=== PATIENT | female | born 1945 | race Caucasian/White ===

== ENCOUNTER → 2016-05-02 | Outpatient (CLI) | payer OTHER, MEDICARE ==
[~2016-05-02] MED LIST: ASPEC81 PO; ATOR-24 PO; FURO80TA63 PO; POTA8CAP6 PO
[2016-05-02 15:19] LABS: ESTIMATED AVERAGE GLUCOSE 126 mg/dl; HA1C FLAG Normal (Normal)
[2016-05-02 15:21] LABS: BLOOD UREA NITROGEN 16 mg/dl (7-18); BUN/CREATININE RATIO 20.3 (10-20); CALCIUM 9.3 mg/dl (8.5-10.1); CARBON DIOXIDE 24 mmol/L (21-32); CHLORIDE 105 mmol/L (98-107); CHOLESTEROL 169 mg/dl (0-200); CHOLESTEROL/HDL RATIO 2.3; CREATININE 0.79 mg/dl (0.60-1.20); GLUCOSE 105 mg/dl (70-99); HDL CHOLESTEROL 74 mg/dl; SODIUM 141 mmol/L (136-145)
[2016-05-02 15:22] LABS: TRIGLYCERIDES 110 mg/dl (0-150); VERY LOW DENSITY LIPOPROT CALC 22 mg/dl
== END | disposition home or self-care (01) ==
LOC: C.LABSPEC 12:13
PROVIDERS: ATTEND Internal Medicine
DX: E78.5 Hyperlipidemia, unspecified (principal); R73.9 Hyperglycemia, unspecified; Z00.00 Encounter for general adult medical examination without abnormal findings; E66.01 Morbid (severe) obesity due to excess calories

== ENCOUNTER → 2016-10-24 | Outpatient (CLI) | payer OTHER, MEDICARE ==
--- NOTE | 2016-10-24 14:32 | MAMMOGRAPHY REPORT ---
BILATERAL DIGITAL SCREENING MAMMOGRAM WITH CAD: 10/24/2016 CLINICAL HISTORY: Routine screening. TECHNIQUE: Current study was also evaluated with a Computer Aided Detection (CAD) system. Bilateral CC and MLO views were obtained. COMPARISON: Comparison is made to exams dated: 10/16/2015 mammogram, 10/09/2014 mammogram, 10/03/2013 brendan mogram, 10/01/2012 mammogram, 09/29/2011 mammogram, and 09/13/2010 mammogram - [facility] er. BREAST COMPOSITION: There are scattered areas of fibroglandular density in both breasts. FINDINGS: No suspicious masses, calcifications, or areas of architectural distortion are noted in ei ther breast. There has been no significant interval change compared to prior exams. A biopsy marker clip is again noted in the left breast. IMPRESSION: ACR BI-RADS CATEGORY 2: BENIGN There is no mammographic evidence of malignancy. A 1 year screening mammogram is recommended. The pa tient will receive written notification of the results. Approximately 10% of breast cancers are not detected with mammography. A negative mammographic report should not delay biopsy if a clinically suggestive mass is present. Linda Noble M.D. /:10/24/2016 12:34:05 Glass Blowing Lathe Operator: Austin COOPER(Marychuy)(Rad), [facility] letter sent: Normal 1/2 BI-RADS Code: ACR BI-RADS Category 2: Benign
== END | disposition home or self-care (01) ==
LOC: C.MAMM 10:06
PROVIDERS: ATTEND Internal Medicine
DX: Z12.31 Encounter for screening mammogram for malignant neoplasm of breast (principal)

== ENCOUNTER → 2016-11-17 | Outpatient (CLI) | payer OTHER, MEDICARE ==
[2016-11-17 13:10] LABS: BLOOD UREA NITROGEN 15 mg/dl (7-18); BUN/CREATININE RATIO 20.1 (10-20); CARBON DIOXIDE 29 mmol/L (21-32); CHLORIDE 108 mmol/L (98-107); CHOLESTEROL 148 mg/dl (0-200); CREATININE 0.74 mg/dl (0.60-1.20); GLUCOSE 106 mg/dl (70-99); POTASSIUM 3.6 mmol/L (3.5-5.1); SODIUM 142 mmol/L (136-145)
[2016-11-17 13:14] LABS: CHOLESTEROL/HDL RATIO 2.2; HDL CHOLESTEROL 66 mg/dl; TRIGLYCERIDES 90 mg/dl (0-150); VERY LOW DENSITY LIPOPROT CALC 18 mg/dl
[2016-11-17 13:25] LABS: ESTIMATED AVERAGE GLUCOSE 120 mg/dl; HA1C FLAG Normal (Normal)
== END | disposition home or self-care (01) ==
LOC: C.LABSPEC 12:19
PROVIDERS: ATTEND Internal Medicine
DX: E78.5 Hyperlipidemia, unspecified (principal); R73.9 Hyperglycemia, unspecified

== ENCOUNTER → 2017-05-18 | Outpatient (CLI) | payer OTHER, MEDICARE ==
[2017-05-18 13:43] LABS: BLOOD UREA NITROGEN 15 mg/dl (7-18); CARBON DIOXIDE 28 mmol/L (21-32); GLUCOSE 109 mg/dl (70-99); POTASSIUM 4.1 mmol/L (3.5-5.1); SODIUM 137 mmol/L (136-145)
[2017-05-18 13:46] LABS: CHOLESTEROL 159 mg/dl (0-200); HEMOGLOBIN A1C 5.8 % (4.5-5.6); LDL CHOLESTEROL (DIRECT) 79 mg/dl
== END | disposition home or self-care (01) ==
LOC: C.LABSPEC 12:23
PROVIDERS: ATTEND Internal Medicine
DX: R73.9 Hyperglycemia, unspecified (principal); Z00.00 Encounter for general adult medical examination without abnormal findings; E78.5 Hyperlipidemia, unspecified

== ENCOUNTER → 2017-06-02 | Outpatient (CLI) | payer OTHER, MEDICARE ==
--- NOTE | 2017-06-02 09:10 | DIAGNOSTIC IMAGING REPORT ---
AORTIC ANEURYSM RETROPERI CLINICAL HISTORY: FAM HX ANEURYSM, AB BRUIT aneurysm TECHNIQUE: Ultrasound COMPARISON STUDY: None FINDINGS: Normal caliber abdominal aorta. No evidence for aneurysm or abnormal periaortic fluid pockets. Maximum dimension proximally is 2.6 cm. Mid abdominal aorta measures 2.0 cm with a distal measuring 1.8 cm. IMPRESSION: Normal study. No evidence for aneurysm. The above report was generated using voice recognition software. It may contain grammatical, syntax or spelling errors. Electronically signed by: Laurent Anaya M.D. 06/02/2017 9:08 AM Dictated Date/Time: 06/02/2017 9:07 AM
== END | disposition home or self-care (01) ==
LOC: C.ULTR 08:25
PROVIDERS: ATTEND Internal Medicine
DX: Z82.49 Family history of ischemic heart disease and other diseases of the circulatory system (principal); R09.89 Other specified symptoms and signs involving the circulatory and respiratory systems

== ENCOUNTER → 2017-10-30 | Outpatient (CLI) | payer OTHER, MEDICARE ==
--- NOTE | 2017-10-31 15:23 | MAMMOGRAPHY REPORT ---
BILATERAL DIGITAL SCREENING MAMMOGRAM TOMOSYNTHESIS WITH CAD: 10/30/2017 CLINICAL HISTORY: Routine screening. TECHNIQUE: The study was acquired using full field digital technology and interpreted from soft copy. Breast tomosynthesis in addition to standard 2D mammography was performed. Current study was also ev aluated with a Computer Aided Detection (CAD) system. COMPARISON: Comparison is made to exams dated: 10/24/2016 mammogram, 10/16/2015 mammogram, 10/09/2014 ma mmogram, 10/03/2013 mammogram, 10/01/2012 mammogram, and 09/29/2011 mammogram - [facility] er. BREAST COMPOSITION: There are scattered areas of fibroglandular density in both breasts. FINDINGS: There is stable nodularity in the breasts. A stable ribbon-shaped biopsy marker clip in th e anterior left breast. No suspicious mass, architectural distortion or cluster of microcalcification s is seen. IMPRESSION: ACR BI-RADS CATEGORY 1: NEGATIVE There is no mammographic evidence of malignancy. A 1 year screening mammogram is recommended.( [id number]) The patient will receive written notification of the results. Some breast cancers are not detected with mammography. A negative mammographic report should not av y biopsy if a clinically suggestive mass is present. Mary Costa M.D. ay/:10/30/2017 20:33:29 Chimney Repairer: RT Juanito(Marychuy)(M), [facility] letter sent: Normal 1/2 BI-RADS Code: ACR BI-RADS Category 1: Negative
== END | disposition home or self-care (01) ==
LOC: C.MAMM 09:53
PROVIDERS: ATTEND Internal Medicine
DX: Z12.31 Encounter for screening mammogram for malignant neoplasm of breast (principal)

== ENCOUNTER → 2017-11-24 | Outpatient (CLI) | payer OTHER, MEDICARE ==
[2017-11-24 14:25] LABS: ALBUMIN 3.6 gm/dl (3.4-5.0); ALKALINE PHOSPHATASE 114 U/L (45-117); ALT/SGPT 22 U/L (12-78); AST/SGOT 26 U/L (15-37); BLOOD UREA NITROGEN 14 mg/dl (7-18); CALCIUM 9.1 mg/dl (8.5-10.1); CARBON DIOXIDE 28 mmol/L (21-32); CHOLESTEROL 150 mg/dl (0-200); CREATININE 0.83 mg/dl (0.60-1.20); GLUCOSE 104 mg/dl (70-99); LDL CHOLESTEROL (DIRECT) 77 mg/dl; POTASSIUM 4.3 mmol/L (3.5-5.1); SODIUM 143 mmol/L (136-145); TOTAL PROTEIN 7.2 gm/dl (6.4-8.2)
[2017-11-24 14:27] LABS: HEMOGLOBIN A1C 5.9 % (4.5-5.6)
== END | disposition home or self-care (01) ==
LOC: C.LABSPEC 13:13
PROVIDERS: ATTEND Internal Medicine
DX: R73.9 Hyperglycemia, unspecified (principal); E78.5 Hyperlipidemia, unspecified

== ENCOUNTER 2022-06-29 16:48 | Observation (INO) ==
--- NOTE | 2022-06-29 17:01 | Emergency Department Note ---
Impression & Plan Choledocholithiasis, Cholelithiases, Femoral hernia of left side, Abdominal pain, Dilated cbd, acquired ED Provider Note NAME: BETSY BAKER AGE: 77 SEX: F : 1945 ARRIVES VIA: Walk-In INFORMANT: Patient, ED PROVIDER(S): Marco A Rothman MD CHIEF COMPLAINT: Abdominal pain MEDICAL DECISION MAKING: Patient presents due to concern for abdominal pain. Patient does have an IV established blood work was obtained a CT abdomen pelvis was ordered. The patient did request pain medication. The patient did receive IV morphine. The patient is a normal white count H&H and platelet count kidney function is unremarkable with relatively normal electrolytes. Urinalysis does show the possibility infection was ordered Rocephin. Patient's CT does show scattered small bowel air-fluid levels suggestive of possible enteritis. Small bowel containing left femoral hernia the patient does have cholelithiasis that CT evidence of acute cholecystitis. Mild dilatation of CBD with equivocal choledocholithiasis and possible pancreatitis. Patient's LFTs and lipase are normal. The patient does have some pain in the left abdomen that is close to where the left femoral hernia would be based on imaging. I did speak with general surgery Colton Aguilera PA-C. Unsure as to whether or not this is a reducible hernia. I did speak with Dr. Castellon with GI and explained the patient does have CBD dilatation with equivocal choledocholithiasis. She recommended ERCP in the morning. I did speak the on-call hospitalist service and the patient was admitted by Dr. Cradozo. I did inform the patient of the recommendations and she is comfortable with the plan of care. Prior /Outside records reviewed: none Differential diagnosis: Appendicitis, ovarian cyst, ovarian torsion, ectopic , TOA, PID, infections, diverticulitis, UTI, obstruction, mesenteric ischemia, aortic pathology, inflammatory bowel disease, renal colic, PUD, pancreatitis, biliary pathology, hernia, volvulus, constipation, as well as other pathologies. Diagnostics, as interpreted by me: ECG: None Cardiac monitoring: An order was placed for continuous cardiac monitoring. The monitor shows a rate of 77 with sinus rhythm. Patient was placed on pulse oximetry Medical decision rules: None Imaging studies: See below HPI: Patient presents due to concern for abdominal pain. The patient states that she initially noticed it yesterday but today has been more persistent describes it as bandlike over the mid abdomen as well as in the lower abdomen. Patient denies any falls or trauma. The patient does have a prior history of a hysterectomy and an umbilical hernia repair. No other surgeries on her abdomen. Patient has had a nausea vomiting or diarrhea. No known sick contacts or recent travel. The patient states that she has had a recent bowel movement last 24 hours denies any blood in urine or stool. No history of kidney stones. Patient did trial some Pepto-Bismol but this did not improve her symptoms. PAST MEDICAL HISTORY: See Below PAST SURGICAL HISTORY: See Below SOCIAL HISTORY: See Below HOME MEDICATIONS: See Below ALLERGIES: See Below VITALS: See Below PHYSICAL EXAMINATION: GENERAL: NAD, wearing a mask, non-toxic. EYE EXAM: Normal conjunctiva. PERRL, no anisocoria and EOM's grossly intact w/o pain. NECK: Supple, no nuchal rigidity, no adenopathy, non-tender. No signs of meningismus. FROM of the neck with good chin to chest and neck extension. No stridor. LUNGS: Clear to auscultation. Normal chest wall mechanics. HEART: NSR, no MRG. ABDOMEN: Abdomen soft, mid abdominal discomfort, not peritonitic, no masses, no rebound or guarding. BACK: No CVA TTP. SKIN: No rashes and no bruising. UPPER EXTREMITIES: Upper extremities are grossly normal. LOWER EXTREMITIES: Grossly normal, no edema. NEURO EXAM: A&O x3, cranial nerves II-XII grossly intact, normal speech, moves all 4 extremities. Past Med/Surg History Medical History Arthritis History of skin cancer Hypertension Lymphedema REASON FOR LASIX DAILY Surgical History H/O total hysterectomy History of cataract surgery LEFT History of colonoscopy History of esophagogastroduodenoscopy (EGD) History of eyelid surgery LEFT EYE SKIN REMOVED History of herniorrhaphy History of tonsillectomy and adenoidectomy History of tooth extraction Family History Daughter Family history of diabetes mellitus Social History Smoking Status: Never smoker Second Hand Exposure: No; Hx Alcohol Use: Yes Alcohol type: wine Preferred Language: Kazakh Licensed Staff Mft Required: No Beliefs That Will Affect Care: None Current Living Situation: Spouse Feels Safe at Home: Yes Assistive Devices: Denture - Upper and Glasses Allergies Allergies Allergy/AdvReac Type Severity Reaction Status Date / Time No Known Allergies Allergy Verified 06/29/22 17:43 Home Meds Home Medications Medication Instructions Recorded Confirmed atorvastatin 40 mg tablet 40 mg PO HS 01/15/20 06/29/22 furosemide 40 mg tablet 40 mg PO BID 01/15/20 06/29/22 multivitamin 1 tab PO HS 01/15/20 06/29/22 potassium chloride 10 mEq 30 meq PO BID 01/15/20 06/29/22 tablet,extended release aspirin 81 mg tablet,delayed 81 mg PO HS 06/29/22 06/29/22 release Results & Data (ED) Vital Signs Vital Signs - 24 hr 06/29/22 16:53 06/29/22 17:24 06/29/22 17:26 Temperature 36.9 C Temperature Source Skin Pulse Rate 57 L 58 L Pulse Rate [Left Apical] 60 Pulse Rhythm Regular Pulse Strength Normal Respiratory Rate 20 18 Respiratory Effort / Characteristics Non-Labored Spontaneous Respiratory Depth Normal Respiratory Pattern Regular Blood Pressure 186/74 H Blood Pressure [Right Arm] 168/70 H Blood Pressure Mean 111 Blood Pressure Mean [Right Arm] 102 Pulse Oximetry 99 98 Oxygen Delivery Method Room Air Room Air Sepsis Recent Fever Within 48 Hours No Sepsis New/Unexplained Change in Mental Status N/A Sepsis Action Taken by Nursing No Action Required 06/29/22 21:29 Temperature Temperature Source Pulse Rate 70 Pulse Rate [Left Apical] Pulse Rhythm Pulse Strength Respiratory Rate Respiratory Effort / Characteristics Respiratory Depth Respiratory Pattern Blood Pressure Blood Pressure [Right Arm] Blood Pressure Mean Blood Pressure Mean [Right Arm] Pulse Oximetry Oxygen Delivery Method Sepsis Recent Fever Within 48 Hours Sepsis New/Unexplained Change in Mental Status Sepsis Action Taken by Fdc Medications Current Medication List: was personally reviewed by me Laboratory Data Attestation: I reviewed the patient's lab results. 06/29/22 17:10 06/29/22 17:10 Lab Results 06/29/22 06/29/22 06/29/22 Range/Units 17:10 17:10 17:14 WBC 9.05 (4.8-10.8) K/ul RBC 4.92 (4.20-5.40) M/uL Hgb 14.4 (12.0-16.0) g/dl Hct 43.4 (37.0-47.0) % MCV 88.2 (80.0-100.0) fL MCH 29.3 (25.0-34.0) pg MCHC 33.2 (32.0-36.0) g/dL RDW Std Deviation 41.3 (36.4-46.3) fL RDW Coeff of Olena 12.8 (11.5-14.5) % Plt Count 254 (130-400) K/uL MPV 11.1 (9.4-12.4) fL Immature Gran % (Auto) 0.1 % Neut % (Auto) 65.4 % Lymph % (Auto) 25.9 % [place] % (Auto) 7.7 % Eos % (Auto) 0.6 % Baso % (Auto) 0.3 % Neut # (Auto) 5.92 (1.40-6.50) K/uL Lymph # (Auto) 2.34 (1.2-3.4) K/uL [place] # (Auto) 0.70 H (0.11-0.59) K/uL Eos # (Auto) 0.05 (0-0.50) K/uL Baso # (Auto) 0.03 (0-0.2) K/uL Immature Gran # (Auto) 0.01 (0.01-0.20) K/uL Sodium 143 (136-145) mmol/L Potassium 3.7 (3.5-5.1) mmol/L Chloride 104 (98-107) mmol/L Carbon Dioxide 28 (21-32) mmol/L Anion Gap 11 (3-11) BUN 19 (6-23) mg/dl Creatinine 1.09 (0.6-1.2) mg/dl Est Cr Clr Drug Dosing 52.4 ml/min Est GFR ( Amer) 55.9 ml/min Est GFR (Non-Af Amer) 48.2 ml/min BUN/Creatinine Ratio 17.4 (10-20) Glucose 114 H (70-99(Fasting)) mg/dl Calcium 9.8 (8.6-10.3) mg/dl Total Bilirubin 0.7 (0.2-1.0) mg/dl AST 20 (13-39) U/L ALT 11 (7-52) U/L Alkaline Phosphatase 93 (34-104) U/L Total Protein 7.4 (6.0-8.3) gm/dl Albumin 4.3 (3.4-5.0) gm/dl Globulin 3.1 (2.5-4.0) gm/dl Albumin/Globulin Ratio 1.4 (0.9-2) Lipase 30 (11-82) U/L Urine Color Yellow Urine Appearance Cloudy A (Clear) Urine pH 6.5 (4.5-7.5) Ur Specific [place] 1.033 H (1.000-1.030) Urine Protein Trace H (Negative) Urine Glucose (UA) Negative (Negative) Urine Ketones Trace H (Negative) Urine Blood Negative (Negative) Urine Nitrite Negative (Negative) Urine Bilirubin Negative (Negative) Urine Urobilinogen Negative (Negative) Ur Leukocyte Esterase Negative (Negative) Urine WBC (Auto) 5-10 H (0-5) /hpf Urine RBC (Auto) 0-4 (0-4) /hpf U Hyaline Cast (Auto) 0 (0-5) /lpf U Epithel Cells (Auto) 5-10 H (0-5) /lpf Urine Bacteria (Auto) 2+ H (Negative) Administered Medications Discontinued Medications Ceftriaxone Sodium (Rocephin) 2,000 mg in 70 mls @ 140 mls/hr IV NOW STA Stop: 06/29/22 20:14 Last Admin: 06/29/22 20:22 Dose: 140 mls/hr Documented By: DIPESH Ioversol (Optiray 350 100ml) 94 ml IV ONCE ONE Stop: 06/29/22 19:04 Last Admin: 06/29/22 19:03 Dose: 94 ml Documented By: ELZBIETA Morphine Sulfate (Morphine Sulfate 4 Mg/Ml 1 Ml Carp\Vial) 4 mg IV NOW STA Stop: 06/29/22 17:45 Last Admin: 06/29/22 17:48 Dose: 4 mg Documented By: [facility] Imaging Data Radiologist's Impression: Abdomen/Pelvis CT 06/29/22 17:[address] WITH IV CONTRAST CT DOSE: 1098.16 mGy.cm HISTORY: Acute severe generalized abdominal pain lower ab pain; h/o hysterec umb hernia repair TECHNIQUE: Multiaxial CT images of the abdomen and pelvis were performed following the IV administration of 94 cc of Optiray, A dose lowering technique was utilized adhering to the principles of ALARA. COMPARISON STUDY: None. FINDINGS: Moderate cardiomegaly with coronary artery calcifications. Clear lung bases. No pneumatosis or pneumoperitoneum. Unremarkable spleen, and adrenal glands. Cholelithiasis without CT evidence of acute cholecystitis. There is a 2 mm radiodense focus noted in the roxana hepatis on image 122. The common bile duct is mildly dilated measuring up to 9 mm extending to the level of the duodenal ampulla. Questioned interstitial and peripancreatic edema. Unremarkable liver. Patency of the hepatic and portal veins. Exophytic 4.9 cm cyst within the lateral interpolar right kidney. 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 Decompressed urinary bladder with wall thickening. Hysterectomy. Mild pelvic floor relaxation. Atherosclero sis of the aorta without aneurysm. Retroaortic left renal vein. No lymphadenopathy identified. Small hiatal hernia. No bowel obstruction or bowel wall thickening. Colonic diverticulosis without acute diverticulitis. Normal appendix. Scattered small bowel air-fluid levels with mild small bowel wall t hickening within the left abdomen and pelvis. There is a small left femoral hernia containing fat, fluid and a portion of small bowel on image 343. Prior ventral abdominal wall herniorrhaphy. No acute fracture. Degenerative changes of the spine, pelvis and hips. IMPRESSION: 1. Scattered small bowel air-fluid levels are noted with a few loops of small bowel demonstrating mild circumferential wall thickening. Findings are suggestive of a nonspecific enteritis. 2. Small bowel containing left femoral hernia. 3. Cholelithiasis without CT evidence of acute cholecystitis. 4. There is mild dilation of the common bile duct with equivocal choledocholithiasis and possible pancreatitis. Correlation with serum bilirubin and lipase recommended. 5. Small hiatal hernia. 6. Additional findings as above. ACT 112: Negative or not required by law. The above report was generated using voice recognition software. It may contain grammatical, syntax or spelling errors. Electronically signed by: Nate Ji M.D. 06/29/2022 7:23 PM Discharge Plan Visit Data Chief Complaint: Abdominal Pain Stated Complaint: SEVERE STOMACH PAIN, ED Provider: Marco A Rothman Discharge Problem: Choledocholithiasis, Cholelithiases, Femoral hernia of left side, Abdominal p ain, Dilated cbd, acquired Forms Stand Alone Forms: My [facility] Prescriptions Prescriptions: No Action multivitamin Tablet 1 tab PO HS furosemide 40 mg Tablet 40 mg PO BID Rx Instructions: TAKES 0100 & EARLY PM. atorvastatin 40 mg Tablet 40 mg PO HS potassium chloride 10 mEq Tablet Extended Release 30 meq PO BID Rx Instructions: TAKES WITH LASIX aspirin 81 mg Tablet,Delayed Release (Dr/Ec) 81 mg PO HS Referrals Referrals: Sudarshan Romero MD [Primary Care Provider] -
[2022-06-29] MEDS ORDERED: MoRPHine SULFATE 4 MG/ML 1 ML CARP\\VIAL IV STA (17:44)
[2022-06-29 17:47] LABS: Appearance Urine Cloudy (Clear); Bilirubin Urine Negative (Negative); Blood Urine Negative (Negative); Color Urine Yellow; Glucose Urine UA Negative (Negative); Ketones Urine Trace (Negative); Leukocyte Esterase Urine Negative (Negative); Nitrite Urine Negative (Negative); Protein Urine Trace (Negative); Specific Gravity Urine 1.033 (1.000-1.030); Urobilinogen Urine Negative (Negative); pH Urine 6.5 (4.5-7.5)
[2022-06-29 17:56] LABS: Basophils # (auto) 0.03 K/uL (0-0.2); Basophils % (auto) 0.3 %; Eosinophils # (auto) 0.05 K/uL (0-0.50); Eosinophils % (auto) 0.6 %; Hematocrit (blood only) 43.4 % (37.0-47.0); Hemoglobin 14.4 g/dl (12.0-16.0); Immature Granulocytes # (auto) 0.01 K/uL (0.01-0.20); Immature Granulocytes % (auto) 0.1 %; Lymphocytes # (auto) 2.34 K/uL (1.2-3.4); Lymphocytes % (auto) 25.9 %; Mean Corpuscular Hemoglobin 29.3 pg (25.0-34.0); Mean Corpuscular Hgb Conc 33.2 g/dL (32.0-36.0); Mean Corpuscular Volume 88.2 fL (80.0-100.0); Mean Platelet Volume 11.1 fL (9.4-12.4); Monocytes % (auto) 7.7 %; Neutrophils # (auto) 5.92 K/uL (1.40-6.50); Neutrophils % (auto) 65.4 %; Platelet Count 254 K/uL (130-400); RDW Coefficient of Variation 12.8 % (11.5-14.5); RDW Standard Deviation 41.3 fL (36.4-46.3); Red Blood Count 4.92 M/uL (4.20-5.40); White Blood Count 9.05 K/ul (4.8-10.8)
[2022-06-29 18:18] LABS: Bacteria Urine Automated 2+ (Negative); Cast Urine Automated 0 /lpf (0-5); RBC Urine Automated 0-4 /hpf (0-4)
[2022-06-29 18:23] LABS: Albumin Globulin Ratio 1.4 (0.9-2); Albumin Level 4.3 gm/dl (3.4-5.0); BUN Creatinine Ratio 17.4 (10-20); Bilirubin,Total 0.7 mg/dl (0.2-1.0); Calcium 9.8 mg/dl (8.6-10.3); Creatinine Clr Calc Pharmacy 52.4 ml/min; Est GFR (African American) 55.9 ml/min; Est GFR (Non-African American) 48.2 ml/min; Globulin 3.1 gm/dl (2.5-4.0); Potassium 3.7 mmol/L (3.5-5.1); Total Protein 7.4 gm/dl (6.0-8.3)
[2022-06-29] MEDS ORDERED: OPTIRAY 350 100ml IV ONE (19:03)
--- NOTE | 2022-06-29 19:26 | CT Scan Report ---
ABDOMEN AND PELVIS CT WITH IV CONTRAST CT DOSE: 1098.16 mGy.cm HISTORY: Acute severe generalized abdominal pain lower ab pain; h/o hysterec umb hernia repair TECHNIQUE: Multiaxial CT images of the abdomen and pelvis were performed following the IV administrat ion of 94 cc of Optiray, A dose lowering technique was utilized adhering to the principles of ALARA. COMPARISON STUDY: None. FINDINGS: Moderate cardiomegaly with coronary artery calcifications. Clear lung bases. No pneumatosis or pneumoperitoneum. Unremarkable spleen, and adrenal glands. Cholelithiasis without CT evidence of acute cholecystitis. There is a 2 mm radiodense focus noted in the roxana hepatis on image 122. The co mmon bile duct is mildly dilated measuring up to 9 mm extending to the level of the duodenal ampulla. Questioned interstitial and peripancreatic edema. Unremarkable liver. Patency of the hepatic and por clara veins. Exophytic 4.9 cm cyst within the lateral interpolar right kidney. 6 mm peripherally calcified right r enal artery aneurysm. Decompressed urinary bladder with wall thickening. Hysterectomy. Mild pelvic fl oor relaxation. Atherosclerosis of the aorta without aneurysm. Retroaortic left renal vein. No lympha denopathy identified. Small hiatal hernia. No bowel obstruction or bowel wall thickening. Colonic div erticulosis without acute diverticulitis. Normal appendix. Scattered small bowel air-fluid levels wit h mild small bowel wall thickening within the left abdomen and pelvis. There is a small left femoral hernia containing fat, fluid and a portion of small bowel on image 343. Prior ventral abdominal wall herniorrhaphy. No acute fracture. Degenerative changes of the spine, pelvis and hips. IMPRESSION: 1. Scattered small bowel air-fluid levels are noted with a few loops of small bowel demonstrating mil d circumferential wall thickening. Findings are suggestive of a nonspecific enteritis. 2. Small bowel containing left femoral hernia. 3. Cholelithiasis without CT evidence of acute cholecystitis. 4. There is mild dilation of the common bile duct with equivocal choledocholithiasis and possible oreilly creatitis. Correlation with serum bilirubin and lipase recommended. 5. Small hiatal hernia. 6. Additional findings as above. ACT 112: Negative or not required by law. The above report was generated using voice recognition software. It may contain grammatical, syntax o r spelling errors. Electronically signed by: Nate Ji M.D. 06/29/2022 7:23 PM
[2022-06-29] MEDS ORDERED: cefTRIAXone SODIUM 2,000 MG/70 ML BAG IV STA (19:45)
--- NOTE | 2022-06-29 21:53 | History & Physical Report ---
Date of Service June 29, 2022 Assessment & Plan (1) Cholelithiases: Plan: 77 yo female with PMHx of lymphedema and HLD presents with 1 day periumbilical and lower quadrant pain. #Cholelithiasis #Nonspecific Enteritis #Abdominal pain -1 day intermittent abdominal pain without exacerbating factors. -CT A/P: Cholelithiasis without CT evidence of acute cholecystitis. Mild dilation of the common bile duct with equivocal choledocholithiasis. Small bowel demonstrating mild circumferential wall thickening suggestive of nonspecific enteritis. -GI and gen surg following -ERCP in am -NPO for now. IV tylenol for pain. IV zofran for nausea. -maintenance IVF @ 75ml/hr -did recieve 1 dose rocpehin in ED for possible UTI. Otherwise no signs of cholecystitis. Will defer to primary team for ppx abx. #Left Femoral hernia -may be incidental finding found on CT. Nontender over site on examination. CT without evidence of obstruction. -gen surg following -repair can be elective in outpatient setting #Possible UTI -UA with +bacteria. Denies urinary symptoms. -Rocephin x1 dose given in ED empirically. Urine cx pending. -will defer to primary team for continuation of abx. #Lymphedema, chronic, stable -takes lasix 40mg bid PO at home with potassium supplementation -will cont. with lasix 20mg bid IV and IV potassium supplementation since NPO #HLD -cont. atorvastatin when no longer NPO DVT ppx: heparin FEN/GI: NPO, NSS @ 75ml/hr Code Status: full Dispo: med surg, obs (2) Femoral hernia of left side: (3) Lymphedema: (4) HLD (hyperlipidemia): History of Present Illness Chief Complaint: abdominal pain Primary Care Provider: Sudarshan Romero MD 77 yo female with PMHx of lymphedema and HLD presents with 1 day periumbilical and lower quadrant pain. Waxing and waning pain without trigger. Was at its worst when she woke up this morning. Not exacerbated with eating. Has had some intermittent midsternal pain since last week but denies current chest pain. Denies headache, sob, N/V/D, constipation, fever, fatigue, dysuria, increased urinary frequency. Took some peptol bismol earlier today which did not help much. Denies h/o gallstones. Allergies Allergy/AdvReac Type Severity Reaction Status Date / Time No Known Allergies Allergy Verified 06/29/22 17:43 Home Medications Medication Instructions Recorded Confirmed Type atorvastatin 40 mg tablet 40 mg PO HS 01/15/20 06/29/22 History furosemide 40 mg tablet 40 mg PO BID 01/15/20 06/29/22 History multivitamin 1 tab PO HS 01/15/20 06/29/22 History potassium chloride 10 mEq 30 meq PO BID 01/15/20 06/29/22 History tablet,extended release aspirin 81 mg tablet,delayed 81 mg PO HS 06/29/22 06/29/22 History release Past Med/Surg History Medical History Arthritis History of skin cancer Hypertension Lymphedema REASON FOR LASIX DAILY Surgical History H/O total hysterectomy History of cataract surgery LEFT History of colonoscopy History of esophagogastroduodenoscopy (EGD) History of eyelid surgery LEFT EYE SKIN REMOVED History of herniorrhaphy History of tonsillectomy and adenoidectomy History of tooth extraction Family History Daughter Family history of diabetes mellitus Social History Smoking Status: Never smoker Second Hand Exposure: No; Hx Alcohol Use: Yes Alcohol type: wine Hx Substance Use: No Preferred Language: Jordanian Communication Ability: Effective 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 AOx3. Vitals as above. HEENT: No scleral injection or discharge. Moist mucous membranes. Neck: Supple without lymphadenopathy or thyromegaly. Trachea midline. Lungs: Clear to auscultation bilaterally with good effort. Cardiac: Regular rate and rhythm. No murmurs. +significant lymphedema. 1+ distal peripheral pulses. Abdomen: Bowel sounds present. Soft and nondistended.Mildly tender in lower quadrants. No guarding or rebound tenderness. Neg murphys. No hepatosplenomegaly. MSK: No cyanosis or clubbing. Extremities motor strength 5/5. Nontender over region of left femoral hernia. Skin: No rashes, warm, dry. Neurologic: no focal deficits Results & Data Results & Data Vital Signs (Past 12 Hours) Vital Signs Temp Pulse Pulse Resp BP BP Pulse Ox 06/29/22 21:29 70 06/29/22 17:26 58 L 06/29/22 17:24 60 18 168/70 H 98 06/29/22 16:53 36.9 C 57 L 20 186/74 H 99 O2 Del Method 06/29/22 21:29 06/29/22 17:26 06/29/22 17:24 Room Air 06/29/22 16:53 Room Air Laboratory Results Laboratory Results WBC 9.05 K/ul (4.8-10.8) 06/29/22 17:10 RBC 4.92 M/uL (4.20-5.40) 06/29/22 17:10 Hgb 14.4 g/dl (12.0-16.0) 06/29/22 17:10 Hct 43.4 % (37.0-47.0) 06/29/22 17:10 MCV 88.2 fL (80.0-100.0) 06/29/22 17:10 MCH 29.3 pg (25.0-34.0) 06/29/22 17:10 MCHC 33.2 g/dL (32.0-36.0) 06/29/22 17:10 RDW Std Deviation 41.3 fL (36.4-46.3) 06/29/22 17:10 RDW Coeff of Olena 12.8 % (11.5-14.5) 06/29/22 17:10 Plt Count 254 K/uL (130-400) 06/29/22 17:10 MPV 11.1 fL (9.4-12.4) 06/29/22 17:10 Immature Gran % (Auto) 0.1 % 06/29/22 17:10 Neut % (Auto) 65.4 % 06/29/22 17:10 Lymph % (Auto) 25.9 % 06/29/22 17:10 [place] % (Auto) 7.7 % 06/29/22 17:10 Eos % (Auto) 0.6 % 06/29/22 17:10 Baso % (Auto) 0.3 % 06/29/22 17:10 Neut # (Auto) 5.92 K/uL (1.40-6.50) 06/29/22 17:10 Lymph # (Auto) 2.34 K/uL (1.2-3.4) 06/29/22 17:10 [place] # (Auto) 0.70 K/uL (0.11-0.59) H 06/29/22 17:10 Eos # (Auto) 0.05 K/uL (0-0.50) 06/29/22 17:10 Baso # (Auto) 0.03 K/uL (0-0.2) 06/29/22 17:10 Immature Gran # (Auto) 0.01 K/uL (0.01-0.20) 06/29/22 17:10 Sodium 143 mmol/L (136-145) 06/29/22 17:10 Potassium 3.7 mmol/L (3.5-5.1) 06/29/22 17:10 Chloride 104 mmol/L (98-107) 06/29/22 17:10 Carbon Dioxide 28 mmol/L (21-32) 06/29/22 17:10 Anion Gap 11 (3-11) 06/29/22 17:10 BUN 19 mg/dl (6-23) 06/29/22 17:10 Creatinine 1.09 mg/dl (0.6-1.2) 06/29/22 17:10 Est Cr Clr Drug Dosing 52.4 ml/min 06/29/22 17:10 Est GFR ( Amer) 55.9 ml/min 06/29/22 17:10 Est GFR (Non-Af Amer) 48.2 ml/min 06/29/22 17:10 BUN/Creatinine Ratio 17.4 (10-20) 06/29/22 17:10 Glucose 114 mg/dl (70-99(Fasting)) H 06/29/22 17:10 Calcium 9.8 mg/dl (8.6-10.3) 06/29/22 17:10 Total Bilirubin 0.7 mg/dl (0.2-1.0) 06/29/22 17:10 AST 20 U/L (13-39) 06/29/22 17:10 ALT 11 U/L (7-52) 06/29/22 17:10 Alkaline Phosphatase 93 U/L (34-104) 06/29/22 17:10 Total Protein 7.4 gm/dl (6.0-8.3) 06/29/22 17:10 Albumin 4.3 gm/dl (3.4-5.0) 06/29/22 17:10 Globulin 3.1 gm/dl (2.5-4.0) 06/29/22 17:10 Albumin/Globulin Ratio 1.4 (0.9-2) 06/29/22 17:10 Lipase 30 U/L (11-82) 06/29/22 17:10 Urine Color Yellow 06/29/22 17:14 Urine Appearance Cloudy (Clear) A 06/29/22 17:14 Urine pH 6.5 (4.5-7.5) 06/29/22 17:14 Ur Specific [place] 1.033 (1.000-1.030) H 06/29/22 17:14 Urine Protein Trace (Negative) H 06/29/22 17:14 Urine Glucose (UA) Negative (Negative) 06/29/22 17:14 Urine Ketones Trace (Negative) H 06/29/22 17:14 Urine Blood Negative (Negative) 06/29/22 17:14 Urine Nitrite Negative (Negative) 06/29/22 17:14 Urine Bilirubin Negative (Negative) 06/29/22 17:14 Urine Urobilinogen Negative (Negative) 06/29/22 17:14 Ur Leukocyte Esterase Negative (Negative) 06/29/22 17:14 Urine WBC (Auto) 5-10 /hpf (0-5) H 06/29/22 17:14 Urine RBC (Auto) 0-4 /hpf (0-4) 06/29/22 17:14 U Hyaline Cast (Auto) 0 /lpf (0-5) 06/29/22 17:14 U Epithel Cells (Auto) 5-10 /lpf (0-5) H 06/29/22 17:14 Urine Bacteria (Auto) 2+ (Negative) H 06/29/22 17:14 Impressions Abdomen/Pelvis CT 06/29/22 17:[address] WITH IV CONTRAST CT DOSE: 1098.16 mGy.cm HISTORY: Acute severe generalized abdominal pain lower ab pain; h/o hysterec umb hernia repair TECHNIQUE: Multiaxial CT images of the abdomen and pelvis were performed following the IV administration of 94 cc of Optiray, A dose lowering technique was utilized adhering to the principles of ALARA. COMPARISON STUDY: None. FINDINGS: Moderate cardiomegaly with coronary artery calcifications. Clear lung bases. No pneumatosis or pneumoperitoneum. Unremarkable spleen, and adrenal glands. Cholelithiasis without CT evidence of acute cholecystitis. There is a 2 mm radiodense focus noted in the roxana hepatis on image 122. The common bile duct is mildly dilated measuring up to 9 mm extending to the level of the duodenal ampulla. Questioned interstitial and peripancreatic edema. Unremarkable liver. Patency of the hepatic and portal veins. Exophytic 4.9 cm cyst within the lateral interpolar right kidney. 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 Decompressed urinary bladder with wall thickening. Hysterectomy. Mild pelvic floor relaxation. Atherosclerosis of the aorta without aneurysm. Retroaortic left renal vein. No lymphadenopathy identified. Small hiatal hernia. No bowel obstruction or bowel wall thickening. Colonic diverticulosis without acute diverticulitis. Normal appendix. Scattered small bowel air-fluid levels with mild small bowel wall thickening within the left abdomen and pelvis. There is a small left femoral hernia containing fat, fluid and a portion of small bowel on image 343. Prior ventral abdominal wall herniorrhaphy. No acute fracture. Degenerative changes of the spine, pelvis and hips. IMPRESSION: 1. Scattered small bowel air-fluid levels are noted with a few loops of small bowel demonstrating mild circumferential wall thickening. Findings are suggestive of a nonspecific enteritis. 2. Small bowel containing left femoral hernia. 3. Cholelithiasis without CT evidence of acute cholecystitis. 4. There is mild dilation of the common bile duct with equivocal choledocholithiasis and possible pancreatitis. Correlation with serum bilirubin and lipase recommended. 5. Small hiatal hernia. 6. Additional findings as above. ACT 112: Negative or not required by law. The above report was generated using voice recognition software. It may contain grammatical, syntax or spelling errors. Electronically signed by: Nate Ji M.D. 06/29/2022 7:23 PM Supervising Physician Co-Signing Physician Notes Attending addendum: I have physically seen this patient, have supervised the medical residents activities, and agree with the H&P unless as otherwise noted. Assessment and Plan: Enteritis/cholelithiasis/dilated common bile duct/questionable choledocholithiasis/pancreatitis- NPO IV fluids, NS at 75 mils per hour ED discussed with GI, who will do ERCP in the a.m. Acetaminophen 1 g IV every 8 hours as needed mild pain or fever Zofran 4 mg IV every 6 hours as needed for nausea or vomiting Famotidine 20 mg IV every 12 hours Ceftriaxone 2 g IV daily Abnormal urinalysis- Follow urine culture and sensitivity Patient did receive ceftriaxone IV from the ED IV fluids as above Chronic lymphedema- While n.p.o., will be holding Lasix and potassium supplementation Hold on any diuresis, monitor fluid status as rehydrate with above Remaining orders and notations as noted Resident Activity Tracking Resident Involvement: Resident Care Provided Care Provided: Adult [facility] Medicine
--- NOTE | 2022-06-29 22:26 | Surgery Consultation ---
This case was discussed with the surgical PA. I agree with this plan. Date of Consultation June 29, 2022 Assessment & Plan (1) Femoral hernia of left side: (2) Cholelithiases: (3) Choledocholithiasis: Due to the patient's clinical presentation and findings on imaging she is being admitted on the hospitalist service. We recommend proceeding as follows: Provide analgesics as needed Provide antiemetics as needed Hydrate with IV fluids Due to the concern for choledocholithiasis gastroenterology has been contacted by the treating emergency room physician. They will evaluate the patient and consideration for performing ERCP will be entertained Patient does have cholelithiasis without evidence of cholecystitis. The patient will likely benefit from a cholecystectomy in the future but this may be able to be performed on an elective basis based on her clinical course after potential ERCP At the present time the patient does not have any pain in the area of the noted femoral hernia, and there is no evidence of bowel obstruction on CT scan. Repair of this on elective basis can be considered unless patient develops worsening signs or symptoms. We will continue to follow the patient while she is hospitalized and additional recommendations be made based on recommendations and any procedures performed by gastroenterology as well as her clinical course as it unfolds History of Present Illness Reason for Consultation: Femoral hernia Cholelithiasis Choledocholithiasis History of Present Illness This is a 77-year-old female who presented to [facility] emergency department secondary to abdominal pain. The patient notes that prior to arrival she was having some nonspecific abdominal pain just inferior to her umbilicus for approximately 2 days. She initially did not seek medical attention as she thought she had a "stomach bug.". She did not report any modifying factors to her pain she denies any nausea or vomiting. She denies any fevers, shakes, or chills. The patient does report that she has had abdominal surgery in the form of a hysterectomy. She denies any dysuria. Since arrival to the hospital the patient has had labs and imaging which I independent reviewed. CT scan abdomen showed some scattered small bowel air- fluid levels with some mild cervical circumferential thickening that were felt to be suggestive of a nonspecific enteritis. She had a small left femoral hernia which contains some bowel. There was cholelithiasis with no evidence of cholecystitis. There was dilated common bile duct with concern for choledocholithiasis and possible pancreatitis. There is no evidence of bowel obstruction on this study. Labs include a CBC her white blood cell count, hemoglobin, hematocrit, and platelet count were normal. Chemistry profile showed sodium, potassium, BUN, and creatinine were normal. There is no elevation of patient's bilirubin, transaminases, alkaline phosphatase, or lipase. Urinalysis showed 2+ bacteria and 5-10 white blood cells per high-power field. This study was negative for nitrites as well as leukocyte Estrace. A COVID test is pending. At the time of my interview the patient's pain had completely resolved and she was in no distress. Allergies Allergy/AdvReac Type Severity Reaction Status Date / Time No Known Allergies Allergy Verified 06/29/22 17:43 Home Medications Medication Instructions Recorded Confirmed Type atorvastatin 40 mg tablet 40 mg PO HS 01/15/20 06/29/22 History furosemide 40 mg tablet 40 mg PO BID 01/15/20 06/29/22 History multivitamin 1 tab PO HS 01/15/20 06/29/22 History potassium chloride 10 mEq 30 meq PO BID 01/15/20 06/29/22 History tablet,extended release aspirin 81 mg tablet,delayed 81 mg PO HS 06/29/22 06/29/22 History release Patient History Medical History Arthritis History of skin cancer Hypertension Lymphedema REASON FOR LASIX DAILY Surgical History H/O total hysterectomy History of cataract surgery LEFT History of colonoscopy History of esophagogastroduodenoscopy (EGD) History of eyelid surgery LEFT EYE SKIN REMOVED History of herniorrhaphy History of tonsillectomy and adenoidectomy History of tooth extraction Family History Daughter Family history of diabetes mellitus Social History Smoking Status: Never smoker Second Hand Exposure: No; Hx Alcohol Use: Yes Alcohol type: wine Preferred Language: Trinidadian [employer] Required: No Beliefs That Will Affect Care: None Current Living Situation: Spouse Feels Safe at Home: Yes Assistive Devices: Denture - Upper and Glasses Review of Systems Constitutional: no fever and no chills Eyes: no eye pain Ear, Nose, Mouth, Throat: no ear pain Respiratory: no cough Cardiovascular: no chest pain Gastrointestinal: as per Subjective / HPI Genitourinary: no dysuria Musculoskeletal: no back pain Integumentary: no rash Neurologic: no localized weakness Physical Exam Constitutional: WD/WN, vitals as above Eyes: + anicteric sclerae ENMT: Ears: no hearing impairment and no external ear abnormality Mouth: no oropharynx abnormality Neck: trachea midline Respiratory: normal respiratory effort; no respiratory distress and no labored breathing Cardiovascular: Rate/Rhythm: regular rate and regular rhythm Gastrointestinal (Abdomen): At the time of my interview the patient's abdomen was soft, nondistended, nonrigid, and nontender to palpation. There is no rebound tenderness or guarding. I could not appreciate any hernias with palpation. The patient's previously noted pain had completely resolved at the time of my interview Musculoskeletal: The patient was noted to have bilateral lymphedema of her lower extremities Skin: no rashes Neurologic: moves all extremities Psychiatric: A+Ox3, euthymic affect Results & Data Vital Signs (Past 12 Hours) Vital Signs Temp Pulse Pulse Resp BP BP Pulse Ox 06/29/22 21:29 70 06/29/22 17:26 58 L 06/29/22 17:24 60 18 168/70 H 98 06/29/22 16:53 36.9 C 57 L 20 186/74 H 99 O2 Del Method 06/29/22 21:29 06/29/22 17:26 06/29/22 17:24 Room Air 06/29/22 16:53 Room Air PG Care Time/CCT Total # of Minutes Spent Total Time Spent with Patient: Total time spent is greater than 50% in coordination of care (as documented) at patient's floor/unit and/or counseling patient: Coding Level of Care Code 06197 INT INP/OBS CARE 75MIN Diagnoses Femoral hernia of left side K41.90 Cholelithiases K80.20 Choledocholithiasis K80.50
[2022-06-30] MEDS ORDERED: ONDANSETRON INJ 2 MG/ML 2 ML VIAL IV PRN (00:23)
[2022-06-30] MEDS: SODIUM CHLORIDE 0.9% 1000ML 1,000 ML IV SCH ×3 (03:23→15:57)
[2022-06-30] MEDS: ACETAMINOPHEN 1,000 MG/100 ML VIAL IV PRN ×2 (03:34→12:55)
[2022-06-30] MEDS: HEPARIN SOD 5,000 UNIT/0.5 ML VIAL SQ SCH ×2 (05:36→14:16)
[2022-06-30 07:00] LABS: Basophils # (auto) 0.02 K/uL (0-0.2); Basophils % (auto) 0.2 %; Eosinophils % (auto) 1.2 %; Hematocrit (blood only) 39.3 % (37.0-47.0); Hemoglobin 12.8 g/dl (12.0-16.0); Immature Granulocytes # (auto) 0.02 K/uL (0.01-0.20); Immature Granulocytes % (auto) 0.2 %; Lymphocytes # (auto) 2.26 K/uL (1.2-3.4); Lymphocytes % (auto) 27.3 %; Mean Corpuscular Hgb Conc 32.6 g/dL (32.0-36.0); Mean Corpuscular Volume 89.1 fL (80.0-100.0); Mean Platelet Volume 11.1 fL (9.4-12.4); Monocytes # (auto) 0.81 K/uL (0.11-0.59); Monocytes % (auto) 9.8 %; Neutrophils # (auto) 5.07 K/uL (1.40-6.50); Neutrophils % (auto) 61.3 %; Platelet Count 220 K/uL (130-400); RDW Coefficient of Variation 12.8 % (11.5-14.5); Red Blood Count 4.41 M/uL (4.20-5.40); White Blood Count 8.28 K/ul (4.8-10.8)
[2022-06-30 07:32] LABS: Albumin Globulin Ratio 1.4 (0.9-2); Albumin Level 3.7 gm/dl (3.4-5.0); BUN Creatinine Ratio 22.5 (10-20); Bilirubin,Total 0.7 mg/dl (0.2-1.0); Creatinine Clr Calc Pharmacy 80.4 ml/min; Est GFR (African American) 93.9 ml/min; Globulin 2.6 gm/dl (2.5-4.0); Potassium 3.9 mmol/L (3.5-5.1); Total Protein 6.3 gm/dl (6.0-8.3)
[2022-06-30] MEDS ORDERED: BUTALBITAL/ACETAMIN/CAFFEINE TAB PO STA (07:32)
[2022-06-30] MEDS: FUROSEMIDE INJ 20 MG/2 ML VIAL IV SCH ×2 (08:06→17:46)
[2022-06-30] MEDS: POTASSIUM CHLORIDE / WTR 10 MEQ/100 ML PLCT IV SCH ×2 (08:16→20:54)
--- NOTE | 2022-06-30 08:23 | Hospitalist Progress Note ---
Date of Service June 30, 2022 Assessment & Plan (1) Cholelithiases: Plan: 77 yo female with PMHx of lymphedema and HLD presents with 1 day periumbilical and lower quadrant pain. (1) Abdominal pain -1 day intermittent abdominal pain LLQ -CT A/P: Cholelithiasis without CT evidence of acute cholecystitis. Mild dilation of the common bile duct with equivocal choledocholithiasis. Small bowel demonstrating mild circumferential wall thickening suggestive of nonspecific enteritis. -Given presentation, location, and resolution of her pain, there was concern if it was due to gastroenteritis or possibly a partial SBO that self resolved. -GI consulted, MRCP ordered may have clear liquids after, if concerning NPO midnight ERCP and surgery tomorrow -Surgery consulted, recommend removal of gallbladder -NPO for now. IV tylenol for pain. IV zofran for nausea. -maintenance IVF @ 75ml/hr -did receive 1 dose Rocephin in ED for possible UTI. Otherwise no signs of cholecystitis. Will defer to primary team for ppx abx. (2)Left Femoral hernia -may be incidental finding found on CT. Nontender over site on examination. CT without evidence of obstruction. -gen surg following -repair can be elective in outpatient setting (3) Bacteuria -UA with +bacteria. Denies urinary symptoms. -Rocephin x1 dose given in ED empirically. Urine cx pending. #Lymphedema, chronic, stable -takes lasix 40mg bid PO at home with potassium supplementation -will cont. with lasix 20mg bid IV and IV potassium supplementation since NPO #HLD -cont. atorvastatin when no longer NPO DVT ppx: ambulatory FEN/GI: NPO, NSS @ 75ml/hr Code Status: full Dispo: med surg, obs (2) Femoral hernia of left side: (3) Lymphedema: (4) HLD (hyperlipidemia): Admission and Anticipated Discharge Date Admission Date: June 29, 2022 Supervising Physician Co-Signing Physician Notes I personally examined the patient and verified all becker points of history and exam, discussed case, and agree with decision making with Dr James. No further pain since admission. Very concerned about pain recurring. Notes that it was very intenseperiumbilical/diffuse abdominal with some left lower quadrant predominancelasted for about 4 hours coming and going in waves. Did not seem to directly relate to eating. CBC, CMP, CT abdomen pelvis, and later MRCP reviewed. Vitals noted, in general she is awake and alert pleasantly anxious but no distress. HEENT normocephalic atraumatic mucous membranes moist. Abdomen is softno where seems to be focally tender, she seems to have either of vague diffuse abdominal tenderness or anticipation of tendernesshard to gauge whichdefinitely no guarding rebound or rigidity. Skin without rashes pallor or icterus Abdominal painsupportive care, otherwise as above. Subjective Patient seen at bedside, calm comfortable cooperative. Per patient yesterday she and her had eaten [employer]. She had normal bowel movements in the morning. Later in the day she developed periumbilical to LLQ abd pain that progressively got worse, noted it can in waves, made her abd feel hard and swollen. Patient denies any other new food or medication that day, states did not feel sick. She came to the ED and received morphine and 1 dose ceftriaxone, NPO since then. Since then her abd pain has largely resolved, states there is still some discomfort in her LLQ abd but no pain on deep inspiration. Since then has only been requesting tylenol for headache. Passing gas normally, no BM today yet. Discussed with patient given the location of her pain and how quickly it resolved, we are not convinced this was due to her gallbladder and stones, seems to be more a gastroenteritis and possible partial SBO. Surgery has recommend removal of her gallbladder at this time given her gallstones. GI to perform MCRP. Physical Exam Constitutional: WD/WN, vitals as above Eyes: PERRL, conjunctivae normal, anicteric sclerae ENMT: external ear and nose normal, oropharynx normal Neck: trachea midline, no thyromegaly Respiratory: normal respiratory effort, lungs clear to auscultation Cardiovascular: RRR, no murmur, no edema Gastrointestinal (Abdomen): Inspection/Auscultation: abdomen normal to inspection Percussion/Palpation: abdomen soft; abdomen nontender Skin: no rashes, warm and dry Psychiatric: A+Ox3, euthymic affect Results & Data Results & Data Vital Signs (Past 12 Hours) Vital Signs Temp Pulse Pulse Pulse Resp BP Pulse Ox 06/30/22 07:08 36.7 C 70 14 171/68 H 98 06/30/22 00:23 36.7 C 77 18 147/86 H 92 06/29/22 23:35 79 20 153/58 H 95 06/29/22 21:29 70 O2 Del Method 06/30/22 07:08 Room Air 06/30/22 00:23 Room Air 06/29/22 23:35 Room Air 06/29/22 21:29 Resident Activity Tracking Resident Involvement: Resident Care Provided Care Provided: Adult Hospital Medicine (1) Cholelithiases Biliary obstruction: without biliary obstruction Cholecystitis presence: without cholecystitis Cholelithiasis location: gallbladder and bile duct Qualified Code(s): K80.70 - Calculus of gallbladder and bile duct without ch olecystitis without obstruction
[2022-06-30] MEDS: PANTOprazole 40 MG in SYRINGE 0 ML IV SCH (12:43)
--- NOTE | 2022-06-30 13:02 | Surgery Progress Note ---
Date of Service June 30, 2022 Assessment & Plan (1) Choledocholithiasis: Plan: Choledocholithiasis without evidence for acute cholecystitis I gave the patient the patient the option to have her gallbladder removed on this admission vs following up with me as an outpatient to have the gallbladder removed at a date in the near future. The patient opted to have it done while she is here. Will plan for today if this can be coordinated with GI but not likely. Will likely be for tomorrow. Hold chemical DVT ppx. SCDs, ambulate Admission and Anticipated Discharge Date Admission Date: June 29, 2022 Subjective Patient seen this am. Mrs. Galvan says she feels much better than she did when she came in. Denies nausea and abdominal pain right now. Says she believes she will be having a procedure with GI today. Physical Exam Constitutional: comfortable; no acute distress, not ill appearing and no altered mental status Respiratory: normal respiratory effort; no respiratory distress, no labored breathing and does not use accessory muscles Cardiovascular: Rate/Rhythm: regular rate Gastrointestinal (Abdomen): Inspection/Auscultation: abdomen normal to inspection; abdomen not distended Percussion/Palpation: + abdomen tender (minimally at the LLQ) and abdomen soft; no guarding and abdomen not rigid Neurologic: awake; not confused Speech / Cognition: normal speech Results & Data Vital Signs (Past 12 Hours) Vital Signs Temp Pulse Resp BP Pulse Ox O2 Del Method 06/30/22 07:08 36.7 C 70 14 171/68 H 98 Room Air PG Care Time/CCT Total # of Minutes Spent Total Time Spent with Patient: Total time spent is greater than 50% in coordination of care (as documented) at patient's floor/unit and/or counseling patient: Coding Level of Care Code 51754 SUB INP/OBS CARE 04/27MIN Diagnoses Choledocholithiasis K80.50
--- NOTE | 2022-06-30 15:03 | Gastrointestinal Consultation ---
I performed a history and physical examination of the patient today, including specifically on physical exam - soft abdomen. I have discussed the patient's management with the advanced practitioner. Please refer to the nurse practitioner's note for the documented findings and plan of care. MRCP Date of Consultation June 30, 2022 Assessment & Plan (1) Abdominal pain: Biliary colic type pain and CT equivocal for choledocholithiasis Plan MRCP this afternoon. If + for choledocholithiasis then will go forward w ERCP tomorrow. Keep NPO until the MRCP, then may have clear liquids today. NPO again after midnight as likely having surgery tomorrow and possibly also ERCP tomorrow. History of Present Illness Reason for Consultation: Abdominal pain Requesting Physician: Dr. Escalante Attending Physician: Jossue Escalante, History of Present Illness Ms. Madeline Galvan is a 77 yr old female pt of Dr. Nick acosta a hx of HTN, lymphedema, arthritis, skin cancer, who presented to the ED yesterday for abdominal pain. CT w cholecystitis, mild bile duct dilation, equivocal of choledocholithiasis. LFTs and lipase normal. GI is consulted to consider ERCP. She reports the onset of mild diffuse abd discomfort early yesterday, then after eating at [employer] at noon, the pain became severe, in "waves," diffuse, radiating to the back. She presented to the ED and has had near complete relief since the fist dose of pain medication. She denies any fevers, chills, sweats, dark urine. Some nausea, no vomiting. She was seen by surgery (Dr. Fox) who plans for cholecystectomy, possibly tomorrow, but suggested GI input prior (? need for ERCP). Allergies Allergy/AdvReac Type Severity Reaction Status Date / Time No Known Allergies Allergy Verified 06/29/22 17:43 Home Medications Medication Instructions Recorded Confirmed Type atorvastatin 40 mg tablet 40 mg PO HS 01/15/20 06/29/22 History furosemide 40 mg tablet 40 mg PO BID 01/15/20 06/29/22 History multivitamin 1 tab PO HS 01/15/20 06/29/22 History potassium chloride 10 mEq 30 meq PO BID 01/15/20 06/29/22 History tablet,extended release aspirin 81 mg tablet,delayed 81 mg PO HS 06/29/22 06/29/22 History release Patient History Medical History Arthritis History of skin cancer Hypertension Lymphedema REASON FOR LASIX DAILY Surgical History H/O total hysterectomy History of cataract surgery LEFT History of colonoscopy History of esophagogastroduodenoscopy (EGD) History of eyelid surgery LEFT EYE SKIN REMOVED History of herniorrhaphy History of tonsillectomy and adenoidectomy History of tooth extraction Family History Daughter Family history of diabetes mellitus Social History Smoking Status: Never smoker Second Hand Exposure: No; Hx Alcohol Use: Yes Alcohol type: wine Hx Substance Use: No Preferred Language: Uzbek Communication Ability: Effective Hat Brusher Machine Required: No Beliefs That Will Affect Care: None Current Living Situation: Spouse Feels Safe at Home: Yes Assistive Devices: None Review of Systems Review of Systems: ROS: Gen: Denies weakness, fevers, weight loss Eyes: No eye redness, or pain, no recent vision changes Resp: No SOB, no cough Cardio: No palpitations/irregular beats, no chest pain GI: As per HPI, otherwise (-). : Denies pain on urination Skin: No jaundice, itching or new rashes Physical Exam Constitutional: WD/WN, vitals as above Eyes: PERRL, conjunctivae normal, anicteric sclerae ENMT: external ear and nose normal, oropharynx normal Neck: trachea midline, no thyromegaly Respiratory: normal respiratory effort, lungs clear to auscultation Cardiovascular: RRR, no murmur, no edema Gastrointestinal (Abdomen): BS present but hypoactive, abd soft w mild diffuse tenderness, no masses. Skin: no rashes, warm and dry Neurologic: PERRL, EOMI, accommodation nl, no face palsy, no dysarthria Psychiatric: A+Ox3, euthymic affect Lymphatic: no cervical or axillary lymphadenopathy Results & Data Vital Signs (Past 12 Hours) Vital Signs Temp Pulse Resp BP Pulse Ox O2 Del Method 06/30/22 07:08 36.7 C 70 14 171/68 H 98 Room Air Laboratory Results WBC 8, Hb 12.8, Hct 29.3, Plts 220, Na 141, K 3.9, Cl 112, CO2 26, BUN 16, Cr 0.71, platelets 119. Diagnostic Findings CTAP w IV contrast on 06/30/22: 1. Scattered small bowel air-fluid levels are noted with a few loops of small bowel demonstrating mild circumferential wall thickening. Findings are suggestive of a nonspecific enteritis. 2. Small bowel containing left femoral hernia. 3. Cholelithiasis without CT evidence of acute cholecystitis. 4. There is mild dilation of the common bile duct with equivocal ch oledocholithiasis and possible pancreatitis. Correlation with serum bilirubin and lipase recommended. 5. Small hiatal hernia. 6. Additional findings as above. (1) Abdominal pain Abdominal location: periumbilical Qualified Code(s): R10.33 - Periumbilical pain
--- NOTE | 2022-06-30 17:51 | Magnetic Resonance Report ---
MR MRCP HISTORY: Left upper quadrant abdominal pain. Abnormal CT. bile duct dilation TECHNIQUE: MRCP of the abdomen was performed without contrast according to standard departmental prot ocol per COMPARISON STUDY: Abdomen and pelvis CT 06/29/2022. FINDINGS: S-shaped scoliosis of the thoracolumbar spine is noted. There is a 4.4 cm right renal cyst. A few subcentimeter T2 hyperintense lesions within the left kidney also favors cysts. No hydronephro sis. The spleen and adrenal glands are unremarkable. The lung bases are clear. The heart is mildly en larged. No hepatic masses or intrahepatic bile duct dilatation. There are few gallstones measuring up to 12 mm. No gallbladder wall thickening. No retroperitoneal lymphadenopathy. Normal caliber abdomin al aorta. No hydronephrosis. The visualized loops of bowel show no wall thickening or obstruction. No rmal caliber common bile measures up to 6 mm. Motion artifact results in suboptimal evaluation of the common bile duct. However, no definite filling defects within the common bile duct to suggest choled ocholithiasis. The main pancreatic duct is normal in course and caliber. Questionable minimal peripan creatic edema at the pancreatic head. IMPRESSION: 1. Cholelithiasis. No gallbladder wall thickening. 2. Normal caliber common bile duct. No definite filling defects within the common bile duct to sugges t choledocholithiasis. 3. Questionable minimal peripancreatic edema at the pancreatic head. Recommend correlation with pancr eatic enzymes to assess for the possibility of an early acute pancreatitis. ACT 112: Negative or not required by law. Electronically signed by: Milan Lopez M.D. 06/30/2022 5:48 PM
--- NOTE | 2022-06-30 18:27 | Billing Data ---
Date of Service June 30, 2022 Coding Level of Care Code 46395 SUB INP/OBS CARE MIN
[2022-06-30] MEDS ORDERED: ASPIRIN 81 MG ECTAB PO SCH (21:00)
[2022-06-30] MEDS ORDERED: MULTIVITAMIN TAB PO SCH (21:00)
[2022-06-30] MEDS ORDERED: ATORVASTATIN 40 MG TAB PO SCH (21:00)
--- NOTE | 2022-06-30 21:12 | Billing Data ---
Date of Service June 30, 2022 Coding Level of Care Code 57871 INT INP/OBS CARE
[2022-07-01] MEDS: SODIUM CHLORIDE 0.9% 1000ML 1,000 ML IV SCH (06:09)
[2022-07-01 06:53] LABS: Hematocrit (blood only) 36.7 % (37.0-47.0); Hemoglobin 11.9 g/dl (12.0-16.0); Mean Corpuscular Hemoglobin 29.4 pg (25.0-34.0); Mean Corpuscular Hgb Conc 32.4 g/dL (32.0-36.0); Mean Corpuscular Volume 90.6 fL (80.0-100.0); Platelet Count 201 K/uL (130-400); RDW Coefficient of Variation 12.8 % (11.5-14.5); RDW Standard Deviation 42.2 fL (36.4-46.3); Red Blood Count 4.05 M/uL (4.20-5.40); White Blood Count 4.57 K/ul (4.8-10.8)
[2022-07-01 07:15] LABS: Albumin Globulin Ratio 1.4 (0.9-2); Albumin Level 3.3 gm/dl (3.4-5.0); BUN Creatinine Ratio 19.4 (10-20); Bilirubin,Total 0.9 mg/dl (0.2-1.0); Calcium 8.5 mg/dl (8.6-10.3); Creatinine Clr Calc Pharmacy 79.3 ml/min; Est GFR (African American) 92.3 ml/min; Est GFR (Non-African American) 79.7 ml/min; Globulin 2.4 gm/dl (2.5-4.0); Potassium 3.6 mmol/L (3.5-5.1); Total Protein 5.7 gm/dl (6.0-8.3)
--- NOTE | 2022-07-01 07:29 | Hospitalist Progress Note ---
Date of Service July 01, 2022 Assessment & Plan Admission and Anticipated Discharge Date Admission Date: June 29, 2022 Subjective Patient seen and evaluated at bedside this morning. This morning, patient feels well overall but notes she had an episode of chest tightness earlier, which has since resolved. Patient notes this has been happening on and off during this hospitalization. Denies SOB. Patient's abdominal pain has improved and is absent at rest. Patient denies nausea, vomiting, lightheadedness, dizziness, and diarrhea. Review of Systems Review of Systems: See HPI Physical Exam Physical Exam: Constitutional: well-appearing, no acute distress HEENT: NCAT, no conjunctival injection CV: heart sounds distant, extremities well-perfused, 1+ LE edema GI: mild epigastric tenderness to palpation, no lower quadrant tenderness Resp: CTABL, no wheezes/rales/rhonchi appreciated, no increased work of breathing Neuro: alert, oriented, no focal neurologic deficit appreciated Results & Data Results & Data Vital Signs (Past 12 Hours) Vital Signs Temp Pulse Pulse Resp BP Pulse Ox O2 Del Method 07/01/22 06:55 36.5 C 59 L 18 146/74 H 94 Room Air 07/01/22 06:35 73 175/82 H 06/30/22 20:45 36.5 C 57 L 16 181/88 H 95 Room Air
[2022-07-01] MEDS: POTASSIUM CHLORIDE / WTR 10 MEQ/100 ML PLCT IV SCH (07:45)
[2022-07-01] MEDS ORDERED: POLYETHYLENE (MIRALAX) 17 GM PACK PO SCH ×2 (09:00)
[2022-07-01] MEDS: PANTOprazole 40 MG in SYRINGE 0 ML IV SCH (10:04)
--- NOTE | 2022-07-01 13:48 | Discharge Summary ---
Date of Service July 01, 2022 Admission HPI Per Admitting Provider 77 yo female with PMHx of lymphedema and HLD presents with 1 day periumbilical and lower quadrant pain. Waxing and waning pain without trigger. Was at its worst when she woke up this morning. Not exacerbated with eating. Has had some intermittent midsternal pain since last week but denies current chest pain. Denies headache, sob, N/V/D, constipation, fever, fatigue, dysuria, increased urinary frequency. Took some peptol bismol earlier today which did not help much. Denies h/o gallstones. Admission Exam Per Admitting Provider Constitutional: in no acute distress, pleasant. AOx3. Vitals as above. HEENT: No scleral injection or discharge. Moist mucous membranes. Neck: Supple without lymphadenopathy or thyromegaly. Trachea midline. Lungs: Clear to auscultation bilaterally with good effort. Cardiac: Regular rate and rhythm. No murmurs. +significant lymphedema. 1+ distal peripheral pulses. Abdomen: Bowel sounds present. Soft and nondistended.Mildly tender in lower quadrants. No guarding or rebound tenderness. Neg murphys. No hepatosplenomegaly. MSK: No cyanosis or clubbing. Extremities motor strength 5/5. Nontender over re gion of left femoral hernia. Skin: No rashes, warm, dry. Neurologic: no focal deficits Principal Diagnosis Abdominal pain Discharge Exam Constitutional: well-appearing, no acute distress HEENT: NCAT, no conjunctival injection CV: heart sounds distant, extremities well-perfused, 1+ LE edema GI: mild epigastric tenderness to palpation, no lower quadrant tenderness Resp: CTABL, no wheezes/rales/rhonchi appreciated, no increased work of breathing Neuro: alert, oriented, no focal neurologic deficit appreciated Discharge Data Allergies Allergy/AdvReac Type Severity Reaction Status Date / Time No Known Allergies Allergy Verified 06/29/22 17:43 Consultations 06/29/22 20:10 ED Decision to Admit Stat 06/30/22 12:48 Consult Gastroenterology Routine Ordered Studies 06/29/22 17:20 CT abd pelvis IV con only Stat 06/30/22 12:47 MR MRCP Routine Hospital Course (1) Abdominal pain: Abdominal pain CT abdomen/pelvis showed cholelithiasis without evidence of acute cholecystitis, in addition to mild CBD dilation, and nonspecific small bowel thickening suggestive of enteritis; overall, imaging findings were concerning for gastroenteritis vs SBO vs gallbladder pathology vs other. GI and general surgery were consulted. General surgery recommended ERCP and cholecystectomy. GI performed an MRCP, which redemonstrated cholelithiasis but was without evidence of choledocholithiasis or cholangitis. Due to the MRCP findings, patient did not undergo ERCP nor cholecystectomy. Patient's symptoms spontaneously resolved on hospital day three; patient's symptoms were suspected to be secondary to constipation. Patient was discharged on hospital day three with PCP and [facility] [place] arranged. Left femoral hernia A left femoral hernia was seen on CT abdomen/pelvis and was felt to be an incidental finding. Patient was without tenderness at this area. [facility] [place] follow-up was arranged upon discharge.. (2) Cholelithiases: (3) HLD (hyperlipidemia): (4) Hypertension: Total Time Total Time Spent Total Time Spent (In Minutes): see attending documentation Discharge Plan Discharge Items Patient Disposition: Home - Self-Care Reason For Visit: ABDOMINAL PAIN Discharge Diagnosis: Abdominal pain Activity: Resume your previous activity Non-emergency contact: Primary Care Provider Call non-emergency contact if: you have any medication questions and your symptoms worsen Follow-up/Referrals: Paul Ramesh DO [Surgeon] - Sudarshan Romero MD [Primary Care Provider] - Klaus Fox DO [Physician] - (Please call to schedule follow up in the office next week) Diet: Regular Addtl Attending Provider Instructions: You were admitted to the hospital for abdominal pain. Your symptoms have im proved and we feel it is safe for you to return home. A discharge summary will be sent to your primary care physician to ensure continuity of care. Please bring this discharge summary with you to your next office appointment so that your provider can review it at that time. Follow-up appointments: We have requested an appointment with your primary care physician, Dr. Romero, for July 06 at 9:25am. If you are unable to make this appointment, please call the [facility] at [phone]. We have requested an appointment with [facility]. Their schedulers will call you over the next few days to schedule an appointment. If you do not hear from them by Monday, call [phone]. Keep all your follow-up appointments as already scheduled. If you cannot make an appointment, notify your provider. Medications: Your medication list has been reviewed and reconciled upon discharge to ensure accuracy and continuity of care. An updated list of all your medications is included with your hospital discharge paperwork. Please review this list closely, and make note of any changes. * For constipation, we recommend taking Miralax (which is [id number]) 2 cap-fulls each day for the next 3-4 days. You can discuss this further with Dr. Romero when you meet with him. Take your medications as instructed; do not skip a dose of your medicines. Make sure all of your doctors know every medicine you are taking (including [id number] medicines, vitamins, and supplements). Call your primary care provider before taking any new medicines (including [id number]-[id number] medicines, vitamins, and supplements), because some of these may interact with your current medications, or may make your symptoms worse. Tell your primary care provider if you cannot afford your medications. CONTACT YOUR PRIMARY CARE PROVIDER if you experience any of the following: Worsening abdominal pain Nausea or vomiting Difficulty following your treatment plan, or difficulty taking medications CALL [phone] OR GO TO THE EMERGENCY DEPARTMENT if you experience any of the following: Sudden, severe abdominal pain or nausea/vomiting Severe chest pain, or chest pain that radiates (moves) to your jaw or arm Sudden, severe shortness of breath or difficulty breathing Thank you for allowing us to participate in your care. Pending Studies at Discharge: No Stand-Alone Forms: My [facility] Medications and DC Order Prescriptions: New polyethylene glycol 3350 [Miralax] 17 gram Powder In Packet 34 g PO DAILY 4 Days Qty: 14 0RF Continued multivitamin Tablet 1 tab PO HS furosemide 40 mg Tablet 40 mg PO BID Rx Instructions: TAKES 0100 & EARLY PM. atorvastatin 40 mg Tablet 40 mg PO HS potassium chloride 10 mEq Tablet Extended Release 30 meq PO BID Rx Instructions: TAKES WITH LASIX aspirin 81 mg Tablet,Delayed Release (Dr/Ec) 81 mg PO HS Discharge Orders: Discharge Order (Routine); Ordered 07/01/22 Ordered By: Marco A Whittaker Admission Data Admit Date/Time: 06/29/22 22:15 Attending Provider: Jossue Escalante Admit Provider: Samuel Patrick Primary Care Provider: Sudarshan Romero Other Providers: Lewis Ledesma ; Hudson Forde Resident Activity Tracking Resident Involvement: Resident Care Provided Care Provided: Adult Hospital Medicine
--- NOTE | 2022-07-01 14:51 | Electrocardiogram Report ---
Test Reason : Blood Pressure : / mmHG Vent. Rate : 063 BPM Atrial Rate : 063 BPM P-R Int : 190 ms QRS Dur : 088 ms QT Int : 432 ms P-R-T Axes : 092 -09 046 degrees QTc Int : 442 ms Poor data quality, interpretation may be adversely affected Sinus rhythm with frequent Premature atrial complexes Abnormal ECG When compared with ECG of 15-FEB-2011 10:33, No significant change was found Confirmed by Nolan Centeno ([id number]) on 07/01/2022 2:51:08 PM Referred By: REFERRED SELF Confirmed By:Nolan Centeno
--- NOTE | 2022-07-01 17:51 | Billing Data ---
Date of Service July 01, 2022 Coding Level of Care Code 83336 IN/OBS DISCH 30 MIN/LESS
== END 2022-07-01 14:33 | disposition home or self-care (01) ==
LOC: 3W 16:48 → ED 16:48 → SUATTDRO 22:15 → 3W 23:56

== ENCOUNTER 2022-10-12 16:25 | Inpatient (IN) ==
--- NOTE | 2022-10-12 16:33 | ED Triage Note ---
Date of Service October 12, 2022 History of Present Illness This patient was briefly evaluated while in triage. An abbreviated physical exam was performed. This patient is a 77-year-old Female who presents to the ED for evaluation of abdominal pain that comes and goes, for a couple days, started to get bad last night and continued today. Pain is around naval and radiates down to lower abdomen. No urinary symptoms. No fevers, chills, nausea, vomiting, diarrhea, constipation. States had similar pain a few months ago, was diagnosed with gall stones, did not have an intervention. Physical Exam CONSTITUTIONAL: No acute distress. Well appearing. RESPIRATORY: Clear to auscultation bilaterally. Equal expansion bilaterally. CARDIOVASCULAR: Regular rate and rhythm. GASTROINTESTINAL: TTP throughout abdomen, most tender in RUQ and RLQ, some epigastric and mid lower abd tenderness. Soft and nondistended. NEUROLOGIC: Alert and oriented X 4 with normal affect. Initial orders for labs and / or imaging were placed and patient was placed in the waiting area until a bed is available. Please see further documentation for the full ED course.
[2022-10-12 17:10] LABS: Basophils # (auto) 0.04 K/uL (0-0.2); Basophils % (auto) 0.5 %; Eosinophils # (auto) 0.04 K/uL (0-0.50); Eosinophils % (auto) 0.5 %; Hematocrit (blood only) 41.4 % (37.0-47.0); Hemoglobin 13.8 g/dl (12.0-16.0); Immature Granulocytes # (auto) 0.03 K/uL (0.01-0.20); Immature Granulocytes % (auto) 0.4 %; Lymphocytes # (auto) 1.68 K/uL (1.2-3.4); Lymphocytes % (auto) 20.5 %; Mean Corpuscular Hemoglobin 30.1 pg (25.0-34.0); Mean Corpuscular Hgb Conc 33.3 g/dL (32.0-36.0); Mean Corpuscular Volume 90.2 fL (80.0-100.0); Mean Platelet Volume 10.4 fL (9.4-12.4); Monocytes # (auto) 0.57 K/uL (0.11-0.59); Neutrophils # (auto) 5.84 K/uL (1.40-6.50); Neutrophils % (auto) 71.1 %; Platelet Count 260 K/uL (130-400); RDW Coefficient of Variation 13.1 % (11.5-14.5); RDW Standard Deviation 42.7 fL (36.4-46.3); Red Blood Count 4.59 M/uL (4.20-5.40)
[2022-10-12 17:24] LABS: Alanine Aminotransferase 20 U/L (7-52); Albumin Globulin Ratio 1.6 (0.9-2); Albumin Level 4.6 gm/dl (3.4-5.0); Alkaline Phosphatase 102 U/L (34-104); Anion Gap 10 (3-11); Aspartate Aminotransferase 33 U/L (13-39); Blood Urea Nitrogen 18 mg/dl (6-23); Calcium 10.5 mg/dl (8.6-10.3); Carbon Dioxide 25 mmol/L (21-32); Chloride 103 mmol/L (98-107); Est GFR (African American) 87.9 ml/min; Est GFR (Non-African American) 75.8 ml/min; Globulin 2.9 gm/dl (2.5-4.0); Glucose 125 mg/dl (70-99(Fasting)); Lipase 21 U/L (11-82); Potassium 4.1 mmol/L (3.5-5.1); Sodium 138 mmol/L (136-145); Total Protein 7.5 gm/dl (6.0-8.3)
[2022-10-12 17:31] LABS: Troponin I High Sensitivity 10.1 pg/ml (0-14)
--- NOTE | 2022-10-12 18:12 | Emergency Department Note ---
Impression & Plan SBO (small bowel obstruction), Inguinal hernia, Abdominal pain ED Provider Note NAME: BETSY BAKER AGE: 77 SEX: F : 1945 ARRIVES VIA: Walk-In INFORMANT: Patient, ED PROVIDER(S): Marco A Rothman MD CHIEF COMPLAINT: Abdominal pain MEDICAL DECISION MAKING: Patient presents due to concern for abdominal pain. The patient has had some intermittent abdominal pain since yesterday. IV was established and blood work was obtained. Patient did have a CT of the abdomen pelvis performed. Patient declined pain medication initially. CT does show concern for small bowel obstruction with left incarcerated femoral hernia. P atient does not have significant tenderness to palpation on exam the patient has had intermittent pain. Patient was ordered IV morphine. I did speak with the general surgery service at [facility] PA-C the patient was admitted by the medicine service by Dr. Rosario with surgical consultation with Dr. House/[facility] PA-C. Prior /Outside records reviewed: I reviewed a discharge summary from Dr. Escalante from June 2022. Differential diagnosis: Appendicitis, ovarian cyst, infections, diverticulitis, UTI, obstruction, mesenteric ischemia, aortic pathology, inflammatory bowel disease, renal colic, PUD, pancreatitis, biliary pathology, hernia, volvulus, constipation, as well as other pathologies. Diagnostics, as interpreted by me: ECG: Sinus bradycardia, rate of 56, normal intervals normal axis T wave version in lead III no ST elevations. Cardiac monitoring: An order was placed for continuous cardiac monitoring. The monitor shows a rate of 62 with sinus rhythm. Patient was placed on pulse oximetry Medical decision rules: None Imaging studies: See below I informally reviewed the patient's CT which does show a left sided hernia HPI: Patient presents due to concern for abdominal pain beginning last evening. The patient describes it as diffuse and bandlike over the mid abdomen. The patient did not take anything for it at home. The patient has had nausea but no vomiting. Patient currently denies any active pain. No shortness of breath or chest pains. Patient does have chronic lymphedema this is unchanged. Patient was concerned about gallstones. The patient states that during a more recent time in the hospital there was discussion about removing her gallbladder due to concerns for gallbladder pain and stones but after some [id number] the patient did not have this removed. The patient states that she then was post to follow-up as an outpatient but never did so. PAST MEDICAL HISTORY: See Below PAST SURGICAL HISTORY: See Below SOCIAL HISTORY: See Below HOME MEDICATIONS: See Below ALLERGIES: See Below VITALS: See Below PHYSICAL EXAMINATION: GENERAL: NAD, non-toxic. EYE EXAM: Normal conjunctiva. PERRL, no anisocoria and EOM's grossly intact w/o pain. NECK: Supple, no nuchal rigidity, no adenopathy, non-tender. No signs of menin gismus. FROM of the neck with good chin to chest and neck extension. No stridor. LUNGS: Clear to auscultation. Normal chest wall mechanics. HEART: NSR, no MRG. ABDOMEN: Abdomen soft, mild discomfort to the left groin, possible small mass to left groin. BACK: No CVA TTP. SKIN: No rashes and no bruising. UPPER EXTREMITIES: Upper extremities are grossly normal. LOWER EXTREMITIES: Grossly normal, nonpitting edema bilaterally which is symmetric. NEURO EXAM: A&O x3, cranial nerves II-XII grossly intact, normal speech, moves all 4 extremities. Past Med/Surg History Medical History Choledocholithiasis Femoral hernia of left side History of skin cancer HLD (hyperlipidemia) Hypertension Lymphedema REASON FOR LASIX DAILY Surgical History H/O total hysterectomy History of cataract surgery LEFT History of colonoscopy History of esophagogastroduodenoscopy (EGD) History of eyelid surgery LEFT EYE SKIN REMOVED History of herniorrhaphy History of tonsillectomy and adenoidectomy History of tooth extraction Family History Daughter Family history of diabetes mellitus Mother Breast cancer Hypertension Brother Cancer Father Myocardial infarction Other Diabetes Social History Smoking Status: Never smoker Second Hand Exposure: No; Do You Dip or Chew Tobacco: No; Hx Alcohol Use: Yes Alcohol type: beer Hx Substance Use: No Preferred Language: Mongolian Communication Ability: Effective [place]ogs[place] Hand Required: No Beliefs That Will Affect Care: None Current Living Situation: Spouse Other Information That Helps Us Care for You: No Feels Safe at Home: Yes Safety Concerns: Feels Safe At This Time Assistive Devices: None Allergies Allergies Allergy/AdvReac Type Severity Reaction Status Date / Time No Known Allergies Allergy Verified 10/12/22 19:41 Home Meds Home Medications Medication Instructions Recorded Confirmed atorvastatin 40 mg tablet 40 mg PO HS 01/15/20 10/12/22 furosemide 40 mg tablet 40 mg PO BID 01/15/20 10/12/22 potassium chloride 10 mEq 30 meq PO BID 01/15/20 10/12/22 tablet,extended release aspirin 325 mg tablet 325 mg PO HS 10/12/22 10/12/22 Results & Data (ED) Vital Signs Vital Signs - 24 hr 10/12/22 19:22 Pulse Rate [Apical] 68 Respiratory Rate 18 Respiratory Effort / Characteristics Non-Labored Spontaneous Respiratory Depth Normal Blood Pressure [Right Arm] 162/74 H Blood Pressure Mean [Right Arm] 103 Blood Pressure Position [Right Arm] Lying Pulse Oximetry 96 Oxygen Delivery Method Room Air Home Medications Current Medication List: was personally reviewed by me Laboratory Data Attestation: I reviewed the patient's lab results. 10/12/22 16:39 10/12/22 16:39 Lab Results 10/12/22 10/12/22 10/12/22 Range/Units 16:39 16:39 18:42 WBC 8.20 (4.8-10.8) K/ul RBC 4.59 (4.20-5.40) M/uL Hgb 13.8 (12.0-16.0) g/dl Hct 41.4 (37.0-47.0) % MCV 90.2 (80.0-100.0) fL MCH 30.1 (25.0-34.0) pg MCHC 33.3 (32.0-36.0) g/dL RDW Std Deviation 42.7 (36.4-46.3) fL RDW Coeff of Olena 13.1 (11.5-14.5) % Plt Count 260 (130-400) K/uL MPV 10.4 (9.4-12.4) fL Immature Gran % (Auto) 0.4 % Neut % (Auto) 71.1 % Lymph % (Auto) 20.5 % [place] % (Auto) 7.0 % Eos % (Auto) 0.5 % Baso % (Auto) 0.5 % Neut # (Auto) 5.84 (1.40-6.50) K/uL Lymph # (Auto) 1.68 (1.2-3.4) K/uL [place] # (Auto) 0.57 (0.11-0.59) K/uL Eos # (Auto) 0.04 (0-0.50) K/uL Baso # (Auto) 0.04 (0-0.2) K/uL Immature Gran # (Auto) 0.03 (0.01-0.20) K/uL Sodium 138 (136-145) mmol/L Potassium 4.1 (3.5-5.1) mmol/L Chloride 103 (98-107) mmol/L Carbon Dioxide 25 (21-32) mmol/L Anion Gap 10 (3-11) BUN 18 (6-23) mg/dl Creatinine 0.75 (0.6-1.2) mg/dl Est Cr Clr Drug Dosing Not Reportable Est GFR ( Amer) 87.9 ml/min Est GFR (Non-Af Amer) 75.8 ml/min BUN/Creatinine Ratio 24.0 H (10-20) Glucose 125 H (70-99(Fasting)) mg/dl Calcium 10.5 H (8.6-10.3) mg/dl Total Bilirubin 1.0 (0.2-1.0) mg/dl AST 33 (13-39) U/L ALT 20 (7-52) U/L Alkaline Phosphatase 102 (34-104) U/L Troponin I High Sens 10.1 (0-14) pg/ml Total Protein 7.5 (6.0-8.3) gm/dl Albumin 4.6 (3.4-5.0) gm/dl Globulin 2.9 (2.5-4.0) gm/dl Albumin/Globulin Ratio 1.6 (0.9-2) Lipase 21 (11-82) U/L Urine Color Dark Yellow Urine Appearance Cloudy A (Clear) Urine pH 5.0 (4.5-7.5) Ur Specific Roslyn 1.034 H (1.000-1.030) Urine Protein Trace H (Negative) Urine Glucose (UA) Negative (Negative) Urine Ketones 1+ H (Negative) Urine Blood Negative (Negative) Urine Nitrite Negative (Negative) Urine Bilirubin 1+ H (Negative) Urine Urobilinogen Negative (Negative) Ur Leukocyte Esterase 1+ H (Negative) Urine WBC (Auto) 10-30 H (0-5) /hpf Urine RBC (Auto) 0-4 (0-4) /hpf U Hyaline Cast (Auto) 1-5 (0-5) /lpf U Epithel Cells (Auto) >30 H (0-5) /lpf Urine Bacteria (Auto) 2+ H (Negative) Administered Medications Acetaminophen (Acetaminophen 325 Mg Tab) 650 mg PO Q4H PRN PRN Reason: pain/fever Stop: 11/11/22 23:52 Last Admin: 10/13/22 04:49 Dose: 650 mg Documented By: RLP Atorvastatin Calcium (Atorvastatin 40 Mg Tab) 40 mg PO HS ANTONY Stop: 11/11/22 23:52 Last Admin: 10/13/22 20:41 Dose: 40 mg Documented By: Admin: 10/13/22 00:21 Dose: 40 mg Documented By: RLP Ceftriaxone Sodium 2,000 mg/ (Dextrose) 70 mls @ 100 mls/hr IV Q24H ANTONY; Protocol Stop: 10/18/22 19:59 Last Admin: 10/13/22 20:40 Dose: 100 mls/hr Documented By: RLP Lactated Ringer's (Lr) 1,000 mls @ 80 mls/hr IV .[id number] [facility] Stop: 11/12/22 13:49 Last Admin: 10/13/22 14:12 Dose: 80 mls/hr Documented By: NIKI Oxycodone/Acetaminophen (Oxycodone/Acetaminophen 5mg/325mg Tab) 1 tab PO Q4H PRN PRN Reason: Moderate Pain (Scale 4, 5, 6) Stop: 10/27/22 13:49 Last Admin: 10/13/22 15:28 Dose: 1 tab Documented By: SJR Discontinued Medications Bupivacaine HCl (Bupivacaine 0.5 % 5 Mg/1 Ml Mpf 30ml Vial) Confirm Administered Dose 30 ml .ROUTE .STK-MED ONE Stop: 10/13/22 09:50 Last Admin: 10/13/22 13:00 Dose: 30 ml Documented By: DMC Ceftriaxone Sodium 2,000 mg/ (Dextrose) 70 mls @ 100 mls/hr IV NOW STA; Protocol Stop: 10/12/22 20:49 Last Infusion: 10/12/22 22:19 Dose: 0 mls/hr Documented By: Admin: 10/12/22 20:50 Dose: 100 mls/hr Documented By: CC Sodium Chloride (Nss 1000ml) 1,000 mls @ 100 mls/hr IV .Q10H ANTONY Stop: 10/13/22 19:52 Last Infusion: 10/13/22 15:44 Dose: 0 mls/hr Documented By: Admin: 10/13/22 15:41 Dose: Not Given Documented By: Infusion: 10/13/22 14:12 Dose: 0 mls/hr Documented By: Infusion: 10/13/22 08:40 Dose: 0 mls/hr Documented By: Admin: 10/13/22 00:04 Dose: 100 mls/hr Documented By: RLP Ioversol (Optiray 320 100ml) 95 ml IV ONCE ONE Stop: 10/12/22 18:35 Last Admin: 10/12/22 18:35 Dose: 95 ml Documented By: PLB Morphine Sulfate (Morphine Sulfate 4 Mg/Ml 1 Ml Carp\Vial) 4 mg IV NOW STA Stop: 10/12/22 19:15 Last Admin: 10/12/22 19:21 Dose: 4 mg Documented By: CC Imaging Data Radiologist's Impression: Abdomen/Pelvis CT 10/12/22 16:33 CT SCAN OF THE ABDOMEN AND PELVIS WITH IV CONTRAST CLINICAL HISTORY: Generalized abdominal pain. COMPARISON STUDY: Abdominal CT dated 06/29/2022. TECHNIQUE: Following the IV administration of 95 cc of Optiray 320, CT scan of the abdomen and pelvis is performed from the lung bases to the proximal femora. Images are reviewed in the axial, sagittal, and coronal planes. IV contrast was administered without complication. A dose lowering technique was utilized adhering to the principles of ALARA. CT DOSE: 1297.93 mGy.cm FINDINGS: Lung bases: The heart is mildly enlarged and without pericardial effusion. A small fat-containing Bochdalek hernia is seen on the right. There is bibasilar scarring/atelectasis. No airspace consolidation or pleural effusion is identified. Liver: The contrast-enhanced liver is normal in size, contour, and attenuation. There is no intrahepatic biliary ductal dilatation. The hepatic veins and portal veins are patent. Gallbladder: There are calcified gallstones with no CT evidence of acute cholecystitis. Spleen: Normal in size and attenuation. There are calcified splenic granulomas. Pancreas: Moderately atrophic and grossly unremarkable. Adrenal glands: Unremarkable. Kidneys: The contrast enhanced kidneys demonstrate mild cortical atrophy and are without hydronephrosis. The kidneys enhance and excrete symmetrically. A 4.7 cm cyst arises from the right kidney. There is a circumaortic left renal vein. Abdominal vasculature: The abdominal aorta is normal in course and caliber noting mild atherosclerotic calcification. Bowel: There is incarcerated loop of small bowel contained within a left groin hernia seen on image #21 and 76. The upstream small bowel loops are distended and fluid-filled, and this is consistent with a small bowel obstruction. Standard bowel loops measure up to 3.2 cm. The distal small bowel is decompressed. No thick-walled bowel loops identified. There is no pneumatosis intestinalis or portal venous gas. There is advanced colonic diverticulosis without CT evidence of acute diverticulitis. The appendix is well-visualized and normal. Peritoneum: There is no intraperitoneal free air or abdominal ascites. There is evidence of previous ventral hernia repair. Lymphadenopathy: None. Pelvic viscera: The bladder is decompressed and contains excreted IV contrast. Question pericystic inflammation. The uterus is surgically absent. No adnexal lesion is seen. Skeletal structures: The skeletal structures are osteopenic. There is moderate lumbosacral spondylosis as well as scoliosis. No lytic or blastic lesions are seen. IMPRESSION: 1. Small bowel obstruction secondary to an incarcerated small bowel loop within a left groin hernia (likely femoral). 2. No intraperitoneal free air is seen. There is no pneumatosis intestinalis or portal venous gas. 3. Cholelithiasis. 4. The bladder is decompressed and there is pericystic inflammation. Correlate with clinical findings and urinalysis. 5. Advanced colonic diverticulosis without CT evidence of acute diverticulitis. 6. Additional findings as above. ACT 112: Negative or not required by law. Electronically signed by: Juan Lawler M.D. 10/12/2022 6:55 PM Discharge Plan Visit Data Chief Complaint: Abdominal Pain Stated Complaint: SEVERE STOMACH PAIN ED Provider: Marco A Rothman Discharge Problem: SBO (small bowel obstruction), Inguinal hernia, Abdominal pain Patient Disposition: Admitted As Inpatient Discharge Instructions Interventions: ED Discharge Assessment Last Done: 10/12/22 23:02
[2022-10-12] MEDS ORDERED: OPTIRAY 320 100ml IV ONE (18:34)
--- NOTE | 2022-10-12 18:57 | CT Scan Report ---
CT SCAN OF THE ABDOMEN AND PELVIS WITH IV CONTRAST CLINICAL HISTORY: Generalized abdominal pain. COMPARISON STUDY: Abdominal CT dated 06/29/2022. TECHNIQUE: Following the IV administration of 95 cc of Optiray 320, CT scan of the abdomen and pelvi s is performed from the lung bases to the proximal femora. Images are reviewed in the axial, sagittal , and coronal planes. IV contrast was administered without complication. A dose lowering technique wa s utilized adhering to the principles of ALARA. CT DOSE: 1297.93 mGy.cm FINDINGS: Lung bases: The heart is mildly enlarged and without pericardial effusion. A small fat-containing Boc hdalek hernia is seen on the right. There is bibasilar scarring/atelectasis. No airspace consolidatio n or pleural effusion is identified. Liver: The contrast-enhanced liver is normal in size, contour, and attenuation. There is no intrahepa tic biliary ductal dilatation. The hepatic veins and portal veins are patent. Gallbladder: There are calcified gallstones with no CT evidence of acute cholecystitis. Spleen: Normal in size and attenuation. There are calcified splenic granulomas. Pancreas: Moderately atrophic and grossly unremarkable. Adrenal glands: Unremarkable. Kidneys: The contrast enhanced kidneys demonstrate mild cortical atrophy and are without hydronephros is. The kidneys enhance and excrete symmetrically. A 4.7 cm cyst arises from the right kidney. There is a circumaortic left renal vein. Abdominal vasculature: The abdominal aorta is normal in course and caliber noting mild atheroscleroti c calcification. Bowel: There is incarcerated loop of small bowel contained within a left groin hernia seen on image # 21 and 76. The upstream small bowel loops are distended and fluid-filled, and this is consistent with a small bowel obstruction. Standard bowel loops measure up to 3.2 cm. The distal small bowel is deco mpressed. No thick-walled bowel loops identified. There is no pneumatosis intestinalis or portal veno us gas. There is advanced colonic diverticulosis without CT evidence of acute diverticulitis. The joan endix is well-visualized and normal. Peritoneum: There is no intraperitoneal free air or abdominal ascites. There is evidence of previous ventral hernia repair. Lymphadenopathy: None. Pelvic viscera: The bladder is decompressed and contains excreted IV contrast. Question pericystic in flammation. The uterus is surgically absent. No adnexal lesion is seen. Skeletal structures: The skeletal structures are osteopenic. There is moderate lumbosacral spondylosi s as well as scoliosis. No lytic or blastic lesions are seen. IMPRESSION: 1. Small bowel obstruction secondary to an incarcerated small bowel loop within a left groin hernia ( likely femoral). 2. No intraperitoneal free air is seen. There is no pneumatosis intestinalis or portal venous gas. 3. Cholelithiasis. 4. The bladder is decompressed and there is pericystic inflammation. Correlate with clinical findings and urinalysis. 5. Advanced colonic diverticulosis without CT evidence of acute diverticulitis. 6. Additional findings as above. ACT 112: Negative or not required by law. Electronically signed by: Juan Lawler M.D. 10/12/2022 6:55 PM
[2022-10-12 19:06] LABS: Appearance Urine Cloudy (Clear); Bacteria Urine Automated 2+ (Negative); Blood Urine Negative (Negative); Color Urine Dark Yellow; Epithelial Cell Urine Auto >30 /lpf (0-5); Glucose Urine UA Negative (Negative); Ketones Urine 1+ (Negative); Leukocyte Esterase Urine 1+ (Negative); Nitrite Urine Negative (Negative); Protein Urine Trace (Negative); RBC Urine Automated 0-4 /hpf (0-4); Specific Gravity Urine 1.034 (1.000-1.030); Urobilinogen Urine Negative (Negative)
[2022-10-12 19:11] LABS: Bilirubin Urine 1+ (Negative)
[2022-10-12] MEDS ORDERED: MoRPHine SULFATE 4 MG/ML 1 ML CARP\\VIAL IV STA (19:14)
--- NOTE | 2022-10-12 19:24 | Surgery Consultation ---
Date of Consultation October 12, 2022 Assessment & Plan (1) Femoral hernia of left side: I discussed with the treating emergency room physician and he is having the hospitalist admit this patient secondary to her elevated blood pressure. I have also discussed case with the hospitalist. They will ensure that the patient is medically optimized as we anticipate performing a left femoral hernia repair on 10/13/[address] House. At the bedside Dr. House was able to reduce the femoral hernia at bedside ( please see his separate note for more detailed description of this procedure) therefore an emergent surgical procedure is not required this evening and we will plan on elective surgery tomorrow as noted above. Will be acceptable for patient have clear liquids this evening but make her n.p.o. after midnight tonight The patient is noted to have an abnormal urinalysis and I discussed with the hospitalist and they plan on initiating antibiotics in form of Rocephin and will follow for urine culture results and change antibiotics accordingly. SCDs to be used for DVT prevention, no chemical means due to planned surgery Additional recommendations to be forthcoming based on her clinical course as it unfolds and operative findings along with her postoperative recovery. Supervising Physician Co-Signing Physician Notes Patient seen and examined, labs and imaging reviewed, agree with above. 77-year-old female with known left femoral hernia presented with lower abdominal pain and left groin pain. CT showed a small incarcerated left femoral hernia containing bowel with a resultant small bowel obstruction. No evidence of strangulation. On exam she is afebrile, initially with hypertensive urgency but this is resolving with pain medication. Abdomen is soft, port site incisions from prior laparoscopic ventral hernia repair. Tender left femoral hernia, able to be reduced after several minutes of manipulation. No guarding or rebound. Labs unremarkable, CT personally viewed and interpreted agree with the asses sment of left femoral hernia with partial small bowel obstruction. The hernia was reduced, and after discussion of her options, she elects to proceed with surgery tomorrow if time and space is available. Plan for robotic assisted laparoscopic left inguinal hernia repair, possible right Risk of the procedure were discussed to include but not limited to bleeding, infection, recurrence, conversion open, chronic pain, damage to surrounding structures, need for future more extensive surgery, and the risk of anesthesia Appreciate medical assistance with this patient Clears tonight, n.p.o. after midnight History of Present Illness Reason for Consultation: Small bowel obstruction History of Present Illness This is a 77-year-old female who presented to the emergency department secondary to abdominal pain. Of note that this patient was seen previously by Susy Soto physician group general surgery on 06/29/2022 secondary to cholelithiasis. In June the patient was seen by our group secondary to cholelithiasis as the patient presented to the hospital secondary to abdominal pain. Plans were tentatively in place for patient undergo a cholecystectomy which was to be coordinated around gastroenterology as there is concern patient may have had choledocholithiasis. During that admission the patient had an MRCP that was negative for choledocholithiasis that and the patient's pain abated and therefore cholecystectomy was never pursued. Patient notes that she has not had recurrence of this type of pain and therefore she did not see anybody as an outpatient to address cholecystectomy at that time either. Patient presented to the emergency department today secondary to 24 hours of abdominal pain. She notes that the pain is in her lower abdomen in a bandlike fashion. She does not report any radiation of the pain and she denies any palliative or provocative factors. She has not had any nausea or vomiting. She denies any diarrhea. The patient notes that her most recent oral intake was some water at approximately 3:00 PM today but she has not had any solid food today. She does report she has had previous abdominal surgeries in the form of a hysterectomy. Although the patient did not mention to this provider she does have evidence on CT scan of a previous ventral hernia repair. Today in the emergency department the patient did have labs and imaging which independent reviewed. A CT scan showed the patient have small bowel obstruction that was felt to be secondary to an incarcerated small bowel loop in the left groin from a likely femoral hernia. There is no intraperitoneal free air and there is no pneumatosis intestinalis or portal venous gas. Labs include a CBC her white blood cell count, hemoglobin, hematocrit, platelet count were normal. Chemistry profile showed sodium, potassium,BUN, and creatinine were all normal as well. There is no elevation of LFTs or lipase. A urinalysis did show cloudy urine with 1+ leukocyte Estrace and greater than 10-30 white blood cells per high-power field. There is 2+ bacteria on this study. A COVID test is pending. At the time of my interview she was resting comfortably in bed and she was in no distress. Allergies Allergy/AdvReac Type Severity Reaction Status Date / Time No Known Allergies Allergy Verified 10/12/22 19:41 Home Medications Medication Instructions Recorded Confirmed Type atorvastatin 40 mg tablet 40 mg PO HS 01/15/20 10/12/22 History furosemide 40 mg tablet 40 mg PO BID 01/15/20 10/12/22 History potassium chloride 10 mEq 30 meq PO BID 01/15/20 10/12/22 History tablet,extended release aspirin 325 mg tablet 325 mg PO HS 10/12/22 10/12/22 History Patient History Medical History Arthritis Choledocholithiasis Choledocholithiasis History of skin cancer Hypertension Lymphedema REASON FOR LASIX DAILY Surgical History H/O total hysterectomy History of cataract surgery LEFT History of colonoscopy History of esophagogastroduodenoscopy (EGD) History of eyelid surgery LEFT EYE SKIN REMOVED History of herniorrhaphy History of tonsillectomy and adenoidectomy History of tooth extraction Family History Daughter Family history of diabetes mellitus Mother Breast cancer Hypertension Brother Cancer Father Myocardial infarction Other Diabetes Social History Smoking Status: Unknown if ever smoked Second Hand Exposure: No; Do You Dip or Chew Tobacco: No; Hx Alcohol Use: Yes Alcohol type: wine Hx Substance Use: No Preferred Language: Albanian Communication Ability: Effective 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 Beliefs That Will Affect Care: None Current Living Situation: Spouse Feels Safe at Home: Yes Assistive Devices: None Review of Systems Constitutional: no fever and no chills Eyes: no eye pain Ear, Nose, Mouth, Throat: no ear pain Respiratory: no cough Cardiovascular: no chest pain Gastrointestinal: as per Subjective / HPI and + abdominal pain; no nausea and no vomiting Genitourinary: no dysuria Musculoskeletal: no back pain Integumentary: no rash Neurologic: no localized weakness Physical Exam Constitutional: WD/WN, vitals as above Eyes: no conjunctival abnormality ENMT: Ears: no hearing impairment Mouth: no oropharynx abnormality Neck: trachea midline Respiratory: normal respiratory effort; no respiratory distress and no labored breathing Cardiovascular: Rate/Rhythm: regular rate and regular rhythm Gastrointestinal (Abdomen): Abdomen is rotund but soft. It is nondistended. There is no rebound tenderness or guarding. The patient did have pain with palpation in the left groin. She did have a small masslike structure consistent with a femoral hernia. There are no skin color changes. There is no open areas or drainage. Musculoskeletal: Bilateral lower extremity lymphedema noted. Pedal pulses are palpable. Skin: no rashes Neurologic: moves all extremities Psychiatric: A+Ox3, euthymic affect Results & Data Vital Signs (Past 12 Hours) Vital Signs Temp Pulse Pulse Resp BP BP Pulse Ox 10/12/22 16:25 65 19 190/78 H 97 10/12/22 16:29 36.2 C L 60 16 226/176 H 96 O2 Del Method 10/12/22 16:25 Room Air 10/12/22 16:29 Room Air PG Care Time/CCT Total # of Minutes Spent Total Time Spent with Patient: Total time spent is greater than 50% in coordination of care (as documented) at patient's floor/unit and/or counseling patient: Coding Level of Care Code 40745 INT INP/OBS CARE 3/75MIN Diagnoses Femoral hernia of left side K41.90
--- NOTE | 2022-10-12 19:37 | History & Physical Report ---
Date of Service October 12, 2022 Assessment & Plan (1) Femoral hernia of left side: Plan: 77yo female presenting with worsening abdominal pain. Found to have an incarcerated left femoral hernia containing bowel resulting in a small bowel obstruction. No evidence of strangulation. Hernia reduced at bedside by General Surgery. Plan for surgical repair tomorrow 10/13/22. -Admit to medical -Patient to remain NPO -Zofran as needed for nausea -Tylenol as needed for fever or pain -Morphine as needed for pain -IVF with NSS at 100mL/hr x 2L -Hold Lasix pre-op - patient takes this medication for chronic lymphedema -Hold ASA pre-op Patient initially with hypertensive urgency upon arrival to the ER. Blood pressure of 226/176. Asymptomatic with no laboratory or clinical evidence of end-organ damage. Blood pressure has improved with time and pain management. -Morphine as needed for pain -Clonidine 0.1mg po TID as needed for blood pressure >180/110 mmHg -Ceftriaxone 1gm IV daily for UTI noted on UA, upcoming surgery Per RCRI criteria patient is Class I risk. She is medically optimized for surgery. She may proceed to surgery with no additional testing. (2) HLD (hyperlipidemia): Plan: Chronic. Stable -Continue Atorvastatin 40mg po qHS (3) Hypertension: Plan: Patient denies history of hypertension. She is currently not taking any anti- hypertensive agents. Blood pressure markedly elevated upon arrival which has since improved. -Continue to monitor -Clonidine as needed for hypertensive urgency F/E/N - NSS at 100mL/hr x 2 liters, electrolytes WNL, NPO for possible OR in AM Ppx - Low risk for DVT. SCDs to bilateral LE Code - Full Code per discussion with patient Dispo - Admit to medical History of Present Illness Chief Complaint: abdominal pain Primary Care Provider: Sudarshan Romero MD Madeline Galvan is a 77yo female with history of hypertension and lymphedema presenting with abdominal pain. Patient first presented to the ER in June 2022 with similar pain periumbilical and lower abdominal. She was found to have cholelithiasis without evidence of acute cholecystitis as well as mild CBD dilation and enteritis. A femoral hernia was seen on the CT of the abdomen as well with no tenderness in this area. Patient was evaluated by General Surgery. Her symptoms improved and she was ultimately discharged home. She was to follow up with Surgery to have a cholecystectomy but did not as her pain had resolved. Yesterday patient developed increased abdominal pain - lower abdominal pain, dull and aching. Intermittent, severe 12/11. Patient presented to the ER today because the pain was becoming more constant and severe throughout the day. She has had no nausea or vomiting, no fevers or chills. She had a normal BM this morning 10/12/22. She passed a small amount of flatus this AM. No additional complaints at this time. No urinary complaints. In the ER she is afebrile, hypertensive on arrival at 226/176 ER Course: Morphine Allergies Allergy/AdvReac Type Severity Reaction Status Date / Time No Known Allergies Allergy Verified 10/12/22 19:41 Home Medications Medication Instructions Recorded Confirmed Type atorvastatin 40 mg tablet 40 mg PO HS 01/15/20 10/12/22 History furosemide 40 mg tablet 40 mg PO BID 01/15/20 10/12/22 History potassium chloride 10 mEq 30 meq PO BID 01/15/20 10/12/22 History tablet,extended release aspirin 325 mg tablet 325 mg PO HS 10/12/22 10/12/22 History Past Med/Surg History Medical History (Updated 10/12/22 @ 20:40 by Valeria Rosario DO) Choledocholithiasis Femoral hernia of left side History of skin cancer HLD (hyperlipidemia) Hypertension Lymphedema REASON FOR LASIX DAILY Surgical History H/O total hysterectomy History of cataract surgery LEFT History of colonoscopy History of esophagogastroduodenoscopy (EGD) History of eyelid surgery LEFT EYE SKIN REMOVED History of herniorrhaphy History of tonsillectomy and adenoidectomy History of tooth extraction Family History Daughter Family history of diabetes mellitus Mother Breast cancer Hypertension Brother Cancer Father Myocardial infarction Other Diabetes Social History Smoking Status: Unknown if ever smoked Second Hand Exposure: No; Do You Dip or Chew Tobacco: No; Hx Alcohol Use: Yes Alcohol type: wine Hx Substance Use: No Preferred Language: Panamanian Communication Ability: Effective Counter Sales Representative Required: No Beliefs That Will Affect Care: None Current Living Situation: Spouse Feels Safe at Home: Yes Assistive Devices: None Review of Systems Review of Systems: All systems reviewed & are unremarkable except as noted in HPI & below Physical Exam Physical Exam: General: patient resting comfortably, NAD, non-toxic in appearance, AA&O x 4 Skin: warm, dry, intact, no rashes or lesions HEENT: NC/AT, PERRL, EOMI, anicteric sclera, conjunctiva without injection, external ear normal to inspection and nontender, nares patent, moist mucus membranes, dentition intact, no oropharyngeal lesions, neck supple, trachea midline, no LAD, no thyromegaly, no JVD Heart: +S1/S2, regular, no m/r/g Lungs: equal air entry bilaterally, no rales/rhonchi/wheezes Abd: +BS, soft, lower abdominal tenderness with palpable femoral hernia - G eneral Surgery at bedside and actively attempting hernia reduction, no masses/organomegaly/ascites Ext: warm, 2+ pulses in UE/LE bilaterally, chronic lymphedema Neuro: nonfocal, patient AA&O x 4, speech intact, no facial droop, moving all extremities on command with equal strength 5/5 Results & Data Results & Data Vital Signs (Past 12 Hours) Vital Signs Temp Pulse Pulse Resp BP BP Pulse Ox 10/12/22 19:22 68 18 162/74 H 96 10/12/22 16:25 65 19 190/78 H 97 10/12/22 16:29 36.2 C L 60 16 226/176 H 96 O2 Del Method 10/12/22 19:22 Room Air 10/12/22 16:25 Room Air 10/12/22 16:29 Room Air Laboratory Results Laboratory Results WBC 8.20 K/ul (4.8-10.8) 10/12/22 16:39 RBC 4.59 M/uL (4.20-5.40) 10/12/22 16:39 Hgb 13.8 g/dl (12.0-16.0) 10/12/22 16:39 Hct 41.4 % (37.0-47.0) 10/12/22 16:39 MCV 90.2 fL (80.0-100.0) 10/12/22 16:39 MCH 30.1 pg (25.0-34.0) 10/12/22 16:39 MCHC 33.3 g/dL (32.0-36.0) 10/12/22 16:39 RDW Std Deviation 42.7 fL (36.4-46.3) 10/12/22 16:39 RDW Coeff of Olena 13.1 % (11.5-14.5) 10/12/22 16:39 Plt Count 260 K/uL (130-400) 10/12/22 16:39 MPV 10.4 fL (9.4-12.4) 10/12/22 16:39 Immature Gran % (Auto) 0.4 % 10/12/22 16:39 Neut % (Auto) 71.1 % 10/12/22 16:39 Lymph % (Auto) 20.5 % 10/12/22 16:39 Nye % (Auto) 7.0 % 10/12/22 16:39 Eos % (Auto) 0.5 % 10/12/22 16:39 Baso % (Auto) 0.5 % 10/12/22 16:39 Neut # (Auto) 5.84 K/uL (1.40-6.50) 10/12/22 16:39 Lymph # (Auto) 1.68 K/uL (1.2-3.4) 10/12/22 16:39 Nye # (Auto) 0.57 K/uL (0.11-0.59) 10/12/22 16:39 Eos # (Auto) 0.04 K/uL (0-0.50) 10/12/22 16:39 Baso # (Auto) 0.04 K/uL (0-0.2) 10/12/22 16:39 Immature Gran # (Auto) 0.03 K/uL (0.01-0.20) 10/12/22 16:39 Sodium 138 mmol/L (136-145) 10/12/22 16:39 Potassium 4.1 mmol/L (3.5-5.1) 10/12/22 16:39 Chloride 103 mmol/L (98-107) 10/12/22 16:39 Carbon Dioxide 25 mmol/L (21-32) 10/12/22 16:39 Anion Gap 10 (3-11) 10/12/22 16:39 BUN 18 mg/dl (6-23) 10/12/22 16:39 Creatinine 0.75 mg/dl (0.6-1.2) 10/12/22 16:39 Est Cr Clr Drug Dosing Not Reportable 10/12/22 16:39 Est GFR ( Amer) 87.9 ml/min 10/12/22 16:39 Est GFR (Non-Af Amer) 75.8 ml/min 10/12/22 16:39 BUN/Creatinine Ratio 24.0 (10-20) H 10/12/22 16:39 Glucose 125 mg/dl (70-99(Fasting)) H 10/12/22 16:39 Calcium 10.5 mg/dl (8.6-10.3) H 10/12/22 16:39 Total Bilirubin 1.0 mg/dl (0.2-1.0) 10/12/22 16:39 AST 33 U/L (13-39) 10/12/22 16:39 ALT 20 U/L (7-52) 10/12/22 16:39 Alkaline Phosphatase 102 U/L (34-104) 10/12/22 16:39 Troponin I High Sens 10.1 pg/ml (0-14) 10/12/22 16:39 Total Protein 7.5 gm/dl (6.0-8.3) 10/12/22 16:39 Albumin 4.6 gm/dl (3.4-5.0) 10/12/22 16:39 Globulin 2.9 gm/dl (2.5-4.0) 10/12/22 16:39 Albumin/Globulin Ratio 1.6 (0.9-2) 10/12/22 16:39 Lipase 21 U/L (11-82) 10/12/22 16:39 Urine Color Dark Yellow 10/12/22 18:42 Urine Appearance Cloudy (Clear) A 10/12/22 18:42 Urine pH 5.0 (4.5-7.5) 10/12/22 18:42 Ur Specific [place] 1.034 (1.000-1.030) H 10/12/22 18:42 Urine Protein Trace (Negative) H 10/12/22 18:42 Urine Glucose (UA) Negative (Negative) 10/12/22 18:42 Urine Ketones 1+ (Negative) H 10/12/22 18:42 Urine Blood Negative (Negative) 10/12/22 18:42 Urine Nitrite Negative (Negative) 10/12/22 18:42 Urine Bilirubin 1+ (Negative) H 10/12/22 18:42 Urine Urobilinogen Negative (Negative) 10/12/22 18:42 Ur Leukocyte Esterase 1+ (Negative) H 10/12/22 18:42 Urine WBC (Auto) 10-30 /hpf (0-5) H 10/12/22 18:42 Urine RBC (Auto) 0-4 /hpf (0-4) 10/12/22 18:42 U Hyaline Cast (Auto) 1-5 /lpf (0-5) 10/12/22 18:42 U Epithel Cells (Auto) >30 /lpf (0-5) H 10/12/22 18:42 Urine Bacteria (Auto) 2+ (Negative) H 10/12/22 18:42 SARS-CoV-2, RNA, NAAT NEGATIVE (NEGATIVE) 10/12/22 Unknown Impressions Abdomen/Pelvis CT 10/12/22 16:33 CT SCAN OF THE ABDOMEN AND PELVIS WITH IV CONTRAST CLINICAL HISTORY: Generalized abdominal pain. COMPARISON STUDY: Abdominal CT dated 06/29/2022. TECHNIQUE: Following the IV administration of 95 cc of Optiray 320, CT scan of the abdomen and pelvis is performed from the lung bases to the proximal femora. Images are reviewed in the axial, sagittal, and coronal planes. IV contrast was administered without complication. A dose lowering technique was utilized adhering to the principles of ALARA. CT DOSE: 1297.93 mGy.cm FINDINGS: Lung bases: The heart is mildly enlarged and without pericardial effusion. A small fat-containing Bochdalek hernia is seen on the right. There is bibasilar scarring/atelectasis. No airspace consolidation or pleural effusion is identified. Liver: The contrast-enhanced liver is normal in size, contour, and attenuation. There is no intrahepatic biliary ductal dilatation. The hepatic veins and portal veins are patent. Gallbladder: There are calcified gallstones with no CT evidence of acute cholecystitis. Spleen: Normal in size and attenuation. There are calcified splenic granulomas. Pancreas: Moderately atrophic and grossly unremarkable. Adrenal glands: Unremarkable. Kidneys: The contrast enhanced kidneys demonstrate mild cortical atrophy and are without hydronephrosis. The kidneys enhance and excrete symmetrically. A 4.7 cm cyst arises from the right kidney. There is a circumaortic left renal vein. Abdominal vasculature: The abdominal aorta is normal in course and caliber noting mild atherosclerotic calcification. Bowel: There is incarcerated loop of small bowel contained within a left groin hernia seen on image #21 and 76. The upstream small bowel loops are distended and fluid-filled, and this is consistent with a small bowel obstruction. Standard bowel loops measure up to 3.2 cm. The distal small bowel is decompressed. No thick-walled bowel loops identified. There is no pneumatosis intestinalis or portal venous gas. There is advanced colonic diverticulosis without CT evidence of acute diverticulitis. The appendix is well-visualized and normal. Peritoneum: There is no intraperitoneal free air or abdominal ascites. There is evidence of previous ventral hernia repair. Lymphadenopathy: None. Pelvic viscera: The bladder is decompressed and contains excreted IV contrast. Question pericystic inflammation. The uterus is surgically absent. No adnexal lesion is seen. Skeletal structures: The skeletal structures are osteopenic. There is moderate lumbosacral spondylosis as well as scoliosis. No lytic or blastic lesions are seen. IMPRESSION: 1. Small bowel obstruction secondary to an incarcerated small bowel loop within a left groin hernia (likely femoral). 2. No intraperitoneal free air is seen. There is no pneumatosis intestinalis or portal venous gas. 3. Cholelithiasis. 4. The bladder is decompressed and there is pericystic inflammation. Correlate with clinical findings and urinalysis. 5. Advanced colonic diverticulosis without CT evidence of acute diverticulitis. 6. Additional findings as above. ACT 112: Negative or not required by law. Electronically signed by: Juan Lawler M.D. 10/12/2022 6:55 PM ECG Additional Comments: EKG - per my interpretation - study shows Sinus bradycardia at 56bpm, normal axis, AE=690, QRS=82, PGd=526, non-specific T wave abnormality in anterior leads, no ST elevation PG Care Time/CCT Total # of Minutes Spent Total Time Spent with Patient: Total time spent is greater than 50% in coordination of care (as documented) at patient's floor/unit and/or counseling patient: Coding Level of Care Code 05519 INT INP/OBS CARE 2/55MIN Diagnoses Femoral hernia of left side K41.90 HLD (hyperlipidemia) E78.5 Hypertension I10
[2022-10-12] MEDS ORDERED: cefTRIAXone SODIUM 2,000 MG in DEXTROSE 5% 50 ML IV STA (20:08)
[2022-10-12] MEDS ORDERED: cloNIDine HCL 0.1 MG TAB PO PRN (23:53)
[2022-10-12] MEDS ORDERED: ONDANSETRON INJ 2 MG/ML 2 ML VIAL IV PRN (23:53)
[2022-10-12] MEDS ORDERED: MoRPHine SULFATE 4 MG/ML 1 ML CARP\\VIAL IV PRN (23:53)
[2022-10-13] MEDS: SODIUM CHLORIDE 0.9% 1000ML 1,000 ML IV SCH ×2 (00:04→15:41)
[2022-10-13] MEDS: ATORVASTATIN 40 MG TAB PO SCH ×2 (00:21→20:41)
[2022-10-13] MEDS: ACETAMINOPHEN 325 MG TAB PO PRN (04:49)
[2022-10-13 07:31] LABS: Hematocrit (blood only) 37.3 % (37.0-47.0); Hemoglobin 12.1 g/dl (12.0-16.0); Mean Corpuscular Hemoglobin 29.7 pg (25.0-34.0); Mean Corpuscular Hgb Conc 32.4 g/dL (32.0-36.0); Mean Corpuscular Volume 91.6 fL (80.0-100.0); Mean Platelet Volume 10.3 fL (9.4-12.4); Platelet Count 229 K/uL (130-400); RDW Standard Deviation 44.5 fL (36.4-46.3); Red Blood Count 4.07 M/uL (4.20-5.40); White Blood Count 6.06 K/ul (4.8-10.8)
[2022-10-13 07:44] LABS: BUN Creatinine Ratio 21.3 (10-20); Calcium 8.8 mg/dl (8.6-10.3); Creatinine Clr Calc Pharmacy 87.9 ml/min; Est GFR (African American) 99.9 ml/min; Est GFR (Non-African American) 86.2 ml/min; Potassium 3.9 mmol/L (3.5-5.1)
--- NOTE | 2022-10-13 07:56 | Hospitalist Progress Note ---
Date of Service October 13, 2022 Assessment & Plan (1) Femoral hernia of left side: (2) HLD (hyperlipidemia): (3) Hypertension: (4) Lymphedema: Plan #Left Femoral Hernia Plan for surgical repair 10/13/22 Pain management post op - will assess, morphine/tylenol as needed Zofran as needed nausea Replete lytes as needed #Hypertension Presented yesterday with hypertensive urgency, improved with pain management No history of HTN, not taking any anti-hypertensive agents Continue to assess Clonidine 0.1mg po TID as needed BP >180/110 #Hyperlipidemia Chronic, stable Atorvastatin 40mg PO qHS #Lymphedema Resume daily lasix following volume status evaluation post-op Admission and Anticipated Discharge Date Admission Date: October 12, 2022 Supervising Physician Co-Signing Physician Notes ATTESTATION I also saw the patient and confirmed becker portions of the history and exam. I agree with the impression and plan in the resident documentation, and as summarized below. Madeline is seen postoperative on the floor. She has just finished part of her lunch; overall, she looks and feels pretty good all things considered. She has no complaints at present EXAM 101/71, 58, 18, 36.6, 90% on nasal cannula at 2 L/min Alert and oriented. No distress appreciated. Mucous membranes are pink and moist Neck is supple Heart is regular rate and rhythm. Heart sounds are distant Lungs clear anteriorly with nonlabored respirations DATA Labs White blood cell count 6.06, hemoglobin 12.1, platelet 229 Sodium 139, testing 3.9, BUN 13, creatinine 0.[address] scan of the abdomen pelvis dated 10/12/2022 demonstrated small bowel obstruction secondary to incarcerated small bowel loop within the left groin. Micro Urine culture collected 10/12/2022 shows pinpoint growth, reintubating. IMPRESSION & PLAN Status post reduction and robotic assisted bilateral laparoscopic repair of bilateral inguinal and femoral hernias and lysis of adhesions, postop day #0 Elevated blood pressure without diagnosis of hypertension, suspect secondary to acute illness Hyperlipidemia Lymphedema CBC and BMP in a.m. Continue atorvastatin Furosemide on hold Pain management per surgical service We will discuss DVT prophylaxis with surgery Additional per resident documentation Subjective 77 yo female with PMHx HTN, HLD, lymphedema admitted with increasing abdominal pain. Found to have incarcerated left femoral hernia containing bowel resulting in SBO. No evidence of strangulation. Reduced bedside by general surgery. Plan for surgery today. Resting comfortably this morning in NAD. Seen post-op. Tolerated procedure well, mild discomfort around surgical site. Eating lunch and tolerating diet. Review of Systems Review of Systems: reviewed, as above Physical Exam Physical Exam: General: patient resting comfortably, NAD, non-toxic in appearance, AA&O x 4, answers questions appropriately and follows commands. Skin: warm, dry, intact, no rashes or lesions HEENT: NC/AT, PERRL, EOMI, anicteric sclera, conjunctiva without injection, external ear normal to inspection and nontender, nares patent, moist mucus membranes, dentition intact, no oropharyngeal lesions, neck supple, trachea midline, no LAD, no thyromegaly, no JVD Heart: +S1/S2, regular, no m/r/g Lungs: equal air entry bilaterally, no rales/rhonchi/wheezes Abd: +BS, soft, NT/ND, no masses/organomegaly/ascites Ext: warm, 2+ pulses in UE/LE bilaterally, no clubbing/cyanosis or edema Neuro: nonfocal, patient AA&O x 4, speech intact, no facial droop, moving all extremities on command with equal strength 5/5 Results & Data Results & Data Vital Signs (Past 12 Hours) Vital Signs Temp Pulse Pulse Resp BP BP Pulse Ox 10/13/22 07:46 36.8 C 65 16 164/79 H 95 10/12/22 23:40 36.7 C 66 18 197/68 H 97 10/13/22 00:20 151/78 H 10/12/22 22:31 61 18 144/63 H 94 10/12/22 21:00 63 18 154/71 H 96 O2 Del Method 10/13/22 07:46 Room Air 10/12/22 23:40 Room Air 10/13/22 00:20 10/12/22 22:31 Room Air 10/12/22 21:00 Room Air Laboratory Results Abnormal lab results 10/12/22 10/12/22 10/13/22 Range/Units 16:39 18:42 07:02 RBC 4.07 L (4.20-5.40) M/uL Chloride (98-107) mmol/L BUN/Creatinine Ratio 24.0 H (10-20) Glucose 125 H (70-99(Fasting)) mg/dl Calcium 10.5 H (8.6-10.3) mg/dl Urine Appearance Cloudy A (Clear) Ur Specific [place] 1.034 H (1.000-1.030) Urine Protein Trace H (Negative) Urine Ketones 1+ H (Negative) Urine Bilirubin 1+ H (Negative) Ur Leukocyte Esterase 1+ H (Negative) Urine WBC (Auto) 10-30 H (0-5) /hpf U Epithel Cells (Auto) >30 H (0-5) /lpf Urine Bacteria (Auto) 2+ H (Negative) 10/13/22 Range/Units 07:02 RBC (4.20-5.40) M/uL Chloride 108 H (98-107) mmol/L BUN/Creatinine Ratio 21.3 H (10-20) Glucose 111 H (70-99(Fasting)) mg/dl Calcium (8.6-10.3) mg/dl Urine Appearance (Clear) Ur Specific [place] (1.000-1.030) Urine Protein (Negative) Urine Ketones (Negative) Urine Bilirubin (Negative) Ur Leukocyte Esterase (Negative) Urine WBC (Auto) (0-5) /hpf U Epithel Cells (Auto) (0-5) /lpf Urine Bacteria (Auto) (Negative) Resident Activity Tracking Resident Involvement: Resident Care Provided Care Provided: Adult [facility] Medicine
--- NOTE | 2022-10-13 08:05 | Anesthesiology Consultation ---
Date of Service October 13, 2022 Assessment & Plan (1) Encounter for pre-operative examination: Chart Review Chart Review: Acceptable Risk for Surgery and Patient NOT seen in Pre Admission Testing Consults Requested none History Surgery Operation Date: 10/13/22 09:25 Proposed Procedures p Robotic assisted Left Laparoscopic Inguinal Hernia Repair - Michael House DO, FACS Height/Weight Height: 5 ft 7 in Weight: 93.7 kg Allergies Allergy/AdvReac Type Severity Reaction Status Date / Time No Known Allergies Allergy Verified 10/12/22 19:41 Medications Home Medications Medication Instructions Recorded Confirmed Last Taken atorvastatin 40 mg tablet 40 mg PO HS 01/15/20 10/12/22 10/11/22 furosemide 40 mg tablet 40 mg PO BID 01/15/20 10/12/22 10/12/22 potassium chloride 10 mEq 30 meq PO BID 01/15/20 10/12/22 10/12/22 tablet,extended release aspirin 325 mg tablet 325 mg PO HS 10/12/22 10/12/22 10/11/22 Active Medications Generic Name Dose Route Start Last Admin Trade Name Freq PRN Reason Stop Dose Admin Acetaminophen 650 mg 10/12/22 23:53 10/13/22 04:49 Acetaminophen 325 Mg Tab PO 11/11/22 23:52 650 mg Q4H PRN Administration pain/fever Atorvastatin Calcium 40 mg 10/12/22 23:53 10/13/22 00:21 Atorvastatin 40 Mg Tab PO 11/11/22 23:52 40 mg HS ANTONY Administration Sodium Chloride 1,000 mls @ 100 mls/hr 10/12/22 23:53 10/13/22 00:04 Nss 1000ml IV 10/13/22 19:52 100 mls/hr .Q10H ANTONY Administration Past Medical History Medical History Choledocholithiasis Femoral hernia of left side History of skin cancer HLD (hyperlipidemia) Hypertension Lymphedema REASON FOR LASIX DAILY Past Family History Family History Daughter Family history of diabetes mellitus Mother Breast cancer Hypertension Brother Cancer Father Myocardial infarction Other Diabetes Past Surgical History Surgical History H/O total hysterectomy History of cataract surgery LEFT History of colonoscopy History of esophagogastroduodenoscopy (EGD) History of eyelid surgery LEFT EYE SKIN REMOVED History of herniorrhaphy History of tonsillectomy and adenoidectomy History of tooth extraction Social History Smoking Status: Never smoker Do You Dip or Chew Tobacco: No Hx Alcohol Use: Yes Alcohol type: beer alcohol intake frequency: a few times a month Hx Substance Use: No substance use type: does not use Physical Exam Vital Signs Last Vital Signs Temp 98.2 F 10/13/22 07:46 Pulse 65 10/13/22 07:46 Resp 16 10/13/22 07:46 BP 164/79 H 10/13/22 07:46 Pulse Ox 95 10/13/22 07:46 O2 Del Method Room Air 10/13/22 07:46 Testing Laboratory Results 10/13/22 07:02 10/13/22 07:02 Urine Color Dark Yellow 10/12/22 18:42 Urine Appearance Cloudy (Clear) A 10/12/22 18:42 Urine pH 5.0 (4.5-7.5) 10/12/22 18:42 Ur Specific [place] 1.034 (1.000-1.030) H 10/12/22 18:42 Urine Protein Trace (Negative) H 10/12/22 18:42 Urine Glucose (UA) Negative (Negative) 10/12/22 18:42 Urine Ketones 1+ (Negative) H 10/12/22 18:42 Urine Nitrite Negative (Negative) 10/12/22 18:42 Ur Leukocyte Esterase 1+ (Negative) H 10/12/22 18:42 Urine WBC (Auto) 10-30 /hpf (0-5) H 10/12/22 18:42 Urine RBC (Auto) 0-4 /hpf (0-4) 10/12/22 18:42 U Hyaline Cast (Auto) 1-5 /lpf (0-5) 10/12/22 18:42 U Epithel Cells (Auto) >30 /lpf (0-5) H 10/12/22 18:42 Urine Bacteria (Auto) 2+ (Negative) H 10/12/22 18:42 Electrocardiogram Date: 10/12/22 Findings: + NSR @
[2022-10-13] MEDS ORDERED: fentaNYL citrate PF 100 MCG/2 ML VIAL ONE ×2 (08:53→12:25)
[2022-10-13] MEDS ORDERED: LIDOCAINE 2% 2 ML VIAL/AMP(20MG/ML) INFIL ONE (08:53)
[2022-10-13] MEDS ORDERED: ePHEDrine sulfate 50 MG/ML AMP ONE (08:53)
[2022-10-13] MEDS ORDERED: DEXAMETHASONE SOD INJ 4 MG/ML VIAL ONE (08:53)
[2022-10-13] MEDS ORDERED: ONDANSETRON INJ 2 MG/ML 2 ML VIAL ONE (08:53)
[2022-10-13] MEDS ORDERED: PROPOFOL IV EMULSION 10 MG/ML 20 ML VIAL IV ONE (08:53)
[2022-10-13] MEDS ORDERED: ROCURONIUM BROMIDE 10 MG/ML 5 ML VIAL IV ONE ×6 (08:53→11:41)
[2022-10-13] MEDS ORDERED: MIDAZOLAM HCL 1 MG/ML 2ML VIAL ONE (08:54)
[2022-10-13] MEDS ORDERED: SUGAMMADEX SODIUM 200 MG/2 ML VIAL IV ONE (08:54)
[2022-10-13] MEDS ORDERED: ONDANSETRON INJ 2 MG/ML 2 ML VIAL IV PRN (09:49)
[2022-10-13] MEDS ORDERED: BUPIVACAINE 0.5 % 5 MG/1 ML MPF 30ML VIAL ONE (09:49)
[2022-10-13] MEDS ORDERED: ePHEDrine sulfate 50 MG/ML AMP IV PRN (09:49)
[2022-10-13] MEDS ORDERED: fentaNYL citrate PF 100 MCG/2 ML VIAL IV PRN (09:49)
[2022-10-13] MEDS ORDERED: ATROPINE SULFATE 0.1 MG/ML 10ML SYR IV PRN (09:49)
[2022-10-13] MEDS ORDERED: ACETAMINOPHEN 1000 MG/100 ML IV IV ONE (09:53)
--- NOTE | 2022-10-13 09:58 | Surgery Progress Note ---
Date of Service October 13, 2022 Assessment & Plan (1) Femoral hernia of left side: Plan: symptomatic left inguinal/femoral hernia, with recent obstruction, desires repair plan for robotic assisted laparoscopic left inguinal hernia repair, possible right, possible open risks discussed to include but not limited to bleeding, infection, recurrence, chronic pain, damage to surrounding structures including testicle, need for future or more extensive surgery, and risks of anesthesia educated on signs and symptoms of incarceration, obstruction, and strangulation return precautions given, call with questions or concerns Admission and Anticipated Discharge Date Admission Date: October 12, 2022 Subjective Admitted with left femoral hernia with resultant bowel obstruction, hernia reduced at bedside by myself yesterday. Waldron better overnight, and minimal pain, symptoms she had at arrival were gone. Difficulty sleeping. No other changes. Physical Exam Constitutional: WD/WN, vitals as above Gastrointestinal (Abdomen): normal bowel sounds, soft, nontender, no hepatosplenomegaly Inspection/Auscultation: + abdominal surgical scar Results & Data Vital Signs (Past 12 Hours) Vital Signs Temp Pulse Pulse Resp BP BP Pulse Ox 10/13/22 09:00 36.6 C 61 20 188/64 H 93 10/13/22 07:46 36.8 C 65 16 164/79 H 95 10/12/22 23:40 36.7 C 66 18 197/68 H 97 10/13/22 00:20 151/78 H 10/12/22 22:31 61 18 144/63 H 94 O2 Del Method 10/13/22 09:00 Room Air 10/13/22 07:46 Room Air 10/12/22 23:40 Room Air 10/13/22 00:20 10/12/22 22:31 Room Air PG Care Time/CCT Total # of Minutes Spent Total Time Spent with Patient: Total time spent is greater than 50% in coordination of care (as documented) at patient's floor/unit and/or counseling patient: Coding Level of Care Code 68559 SUB INP/OBS CARE 125MIN Diagnoses Femoral hernia of left side K41.90
[2022-10-13] MEDS ORDERED: ceFAZolin 330 MG/ML 1 GM VIAL ONE (11:13)
[2022-10-13] MEDS ORDERED: PHENYLEPHRINE HCL 10 MG/ML VIAL ONE (11:18)
--- NOTE | 2022-10-13 12:16 | Electrocardiogram Report ---
Test Reason : Blood Pressure : / mmHG Vent. Rate : 056 BPM Atrial Rate : 056 BPM P-R Int : 152 ms QRS Dur : 082 ms QT Int : 438 ms P-R-T Axes : -08 -15 012 degrees QTc Int : 422 ms Sinus bradycardia Otherwise normal ECG When compared with ECG of 01-JUL-2022 08:05, Premature atrial complexes are no longer Present Nonspecific T wave abnormality now evident in Anterior leads Confirmed by Chon Flores ([id number]) on 10/13/2022 12:16:40 PM Referred By: REFERRED SELF Confirmed By:Amrit Flores
--- NOTE | 2022-10-13 13:06 | Operative Report ---
PG Post Operative Report Pre & Post Diagnosis Operation Date: 10/13/22 09:25 Pre-Op Diagnosis: Incarcerated left femoral hernia Post-Op Diagnosis: Bilateral inguinal and femoral hernias, abdominal adhesions I identified the patient and participated in the time-out.: Yes Procedure Operation Date: 10/13/22 09:25 Actual Procedures p Robotic assisted Bilateral Laparoscopic Inguinal Hernia Repair with Mesh and Laparoscopic Lysis of Adhesions(Bilateral) - Michael House DO, MARY Surgeon Michael House DO, MARY Menswear Salesperson None Estimated Blood Loss 30 Findings Consistent with Post-Op Diagnosis Omental adhesions to anterior abdomen at site of prior laparoscopic ventral hernia repair. These were taken down with sharp dissection and cautery. Bilateral indirect inguinal and femoral hernias, ProGrip mesh placed bilaterally. Specimens None Anesthesia Type General Complications none Disposition Accompanied Patient To Recovery: No Disposition: Recovery Room Indications 77-year-old female presented with incarcerated left inguinal hernia with small bowel obstruction. The hernia was reduced at the bedside the patient was admitted with plans for robotic assisted laparoscopic left inguinal hernia repair, possible right, possible open. The risks of the procedure were discussed, all questions were answered, and the patient agreed to proceed with surgery as planned. Description of Procedure The patient was properly identified, consented, and taken to the operating room where she was placed in the supine position. General endotracheal anesthesia was induced. SCDs and a safety belt were placed. A martin catheter was placed. Preoperative antibiotics were administered. The patient's groins and abdomen were prepped and draped in the standard sterile fashion. Surgical timeout was performed and all parties were in agreement that this was the correct patient and procedure to be performed and we continued as planned. An incision was made in the left upper quadrant. The Veress needle was inserted and saline drop test confirmed entry into the abdomen. The abdomen was insufflated with carbon dioxide which the patient tolerated without incident. The Veress needle was removed and the abdomen was entered using the Optiview technique and a 5 mm camera. The introducer was removed and the camera reinserted. No damage from initial trocar placement or Veress needle placement was identified. There was omental adhesions to the prior ventral hernia repair. There was evidence of bilateral inguinal hernias. The bowel had been successfully reduced last night prior to surgery. An 8 mm robotic port was then placed in the right upper quadrant in a safe window. An extensive lysis of adhesions was then performed by taking down the omentum off of the prior ventral hernia repair. Hemostasis was achieved with electrocautery. An 8 mm robotic port was then placed in the upper abdomen just to the left of midline. The patient was placed in the Trendelenburg position. The robot was docked, and the camera and instruments were inserted. Dissection began on the left. The peritoneum was incised approximately 6 cm above the defect, starting at the medial umbilical ligament and working laterally. The peritoneal flap was raised. Dissection began laterally at the anterior superior iliac spine. Alberto's ligament was then dissected medially. The cord structures were circumferentially dissected. A incarcerated indirect inguinal hernia inguinal hernia defect was identified and reduced. The peritoneum was reduced and the round leg was skeletonized. There was also an additional direct inguinal hernia on the left as well as a femoral hernia. These were both reduced. The round ligament was divided and hemostasis was good. I then turned my attention to the right side. The peritoneum was incised approximately 6 cm above the defect, starting at the medial umbilical ligament and working laterally. The peritoneal flap was raised. Dissection began laterally at the anterior superior iliac spine. Alberto's ligament was then dissected medially. The cord structures were circumferentially dissected. A incarcerated indirect inguinal hernia defect was identified and the fat was reduced. The peritoneum was reduced and the round ligament was skeletonized. An additional femoral hernia was identified and reduced. Progrip mesh was placed bilaterally and covered the direct, indirect, and femoral spaces. The peritoneal flap was then closed with a running absorbable barbed suture on each side. The robot was undocked and the ports were removed. The skin of all port sites were closed with 4-0 Monocryl subcuticular suture, and Dermabond was placed over the incisions. The patient was extubated in the operating room and taken to the PACU for recovery without apparent incident. All sponge, instrument, and needle counts were correct at the conclusion of the procedure. The patient tolerated the procedure well. I attest to the content of the Intraoperative Record and any orders documented therein. Any exceptions are noted below.
[2022-10-13] MEDS ORDERED: oxyCODONE/ACETAMINOPHEN 5mg/325mg TAB PO PRN (13:50)
--- NOTE | 2022-10-13 13:54 | Anesthesiology Progress Note ---
Date of Service October 13, 2022 Anesthesia Post Procedure Vital Signs Vital Signs: Temp Pulse Pulse Pulse Resp BP BP 10/13/22 13:45 36.5 C 66 18 121/72 10/13/22 13:25 58 L 18 10/13/22 13:15 64 16 10/13/22 13:06 36.2 C L 73 17 10/13/22 09:00 36.6 C 61 20 10/13/22 07:46 36.8 C 65 16 164/79 H 10/12/22 23:40 36.7 C 66 18 197/68 H 10/13/22 00:20 151/78 H 10/12/22 22:31 61 18 10/12/22 21:00 63 18 10/12/22 19:22 68 18 10/12/22 16:25 65 19 10/12/22 16:29 36.2 C L 60 16 226/176 H BP Pulse Ox O2 Del Method 10/13/22 13:45 92 Room Air 10/13/22 13:25 134/59 L 100 Room Air 10/13/22 13:15 131/63 95 Room Air 10/13/22 13:06 152/69 H 98 Room Air 10/13/22 09:00 188/64 H 93 Room Air 10/13/22 07:46 95 Room Air 10/12/22 23:40 97 Room Air 10/13/22 00:20 10/12/22 22:31 144/63 H 94 Room Air 10/12/22 21:00 154/71 H 96 Room Air 10/12/22 19:22 162/74 H 96 Room Air 10/12/22 16:25 190/78 H 97 Room Air 10/12/22 16:29 96 Room Air Pain Intensity Upper Abdomen: Pain Intensity: 5 Transfer of Care Handoff Completed per policy Notes Mental Status: alert / awake / arousable Patient Amnestic to Procedure: Yes Nausea / Vomiting: adequately controlled Pain: adequately controlled Airway Patency, RR, SpO2: stable & adequate BP & HR: stable & adequate Hydration State: stable & adequate Anesthetic Complications: no major complications apparent
[2022-10-13] MEDS: LACTATED RINGER'S 1,000 ML IV SCH (14:12)
[2022-10-13] MEDS: oxyCODONE/ACETAMINOPHEN 5mg/325mg TAB PO PRN (15:28)
[2022-10-13] MEDS: cefTRIAXone SODIUM 2,000 MG in DEXTROSE 5% 50 ML IV SCH (20:40)
[2022-10-14] MEDS: LACTATED RINGER'S 1,000 ML IV SCH ×2 (02:35→15:53)
--- NOTE | 2022-10-14 07:20 | Hospitalist Progress Note ---
Date of Service October 14, 2022 Assessment & Plan (1) Femoral hernia of left side: (2) HLD (hyperlipidemia): (3) Hypertension: (4) Lymphedema: Plan #Left Femoral Hernia Tolerated repair well. Pain management post op - will assess, morphine/tylenol as needed Zofran as needed nausea Replete lytes as needed #Hypertension Presented yesterday with hypertensive urgency, improved with pain management No history of HTN, not taking any anti-hypertensive agents Continue to assess Clonidine 0.1mg po TID as needed BP >180/110 #Hyperlipidemia Chronic, stable Atorvastatin 40mg PO qHS #Lymphedema Resume daily lasix following volume status evaluation post-op Admission and Anticipated Discharge Date Admission Date: October 12, 2022 Supervising Physician Co-Signing Physician Notes I personally examined the patient and verified all becker points of history and exam, discussed case, and agree with decision making and plan documented by Dr. Dyer. Patient POD1, maintains mild discomfort in area of hernia repair, incisions C/D/I, patient tolerating p.o., denies any breathing concerns or chest pain. Subjective 77 yo female with PMHx HTN, HLD, lymphedema admitted with increasing abdominal pain. Found to have incarcerated left femoral hernia containing bowel resulting in SBO. No evidence of strangulation. Reduced bedside by general surgery. Resting comfortably this morning in NAD. Tolerated procedure well, discomfort around surgical site, pain well controlled. Tolerating diet. Complaining of mild dizziness. Review of Systems Review of Systems: Reviewed, see HPI Physical Exam Physical Exam: General: patient resting comfortably, NAD, non-toxic in appearance, AA&O x 4, answers questions appropriately and follows commands. Skin: warm, dry, intact, no rashes or lesions HEENT: NC/AT, PERRL, EOMI, anicteric sclera, conjunctiva without injection, external ear normal to inspection and nontender, nares patent, moist mucus membranes, dentition intact, no oropharyngeal lesions, neck supple, trachea mi dline, no LAD, no thyromegaly, no JVD Heart: +S1/S2, regular, no m/r/g Lungs: equal air entry bilaterally, no rales/rhonchi/wheezes Abd: +BS, soft, ND, no masses/organomegaly/ascites Incisions C/D/I Ext: warm, 2+ pulses in UE/LE bilaterally, no clubbing/cyanosis or edema Neuro: nonfocal, patient AA&O x 4, speech intact, no facial droop, moving all extremities on command with equal strength 5/5 Results & Data Results & Data Vital Signs (Past 12 Hours) Vital Signs Temp Pulse Resp BP Pulse Ox O2 Del Method 10/14/22 04:00 36.6 C 62 18 145/82 H 96 Room Air 10/13/22 22:33 36.7 C 60 18 113/65 96 Room Air 10/13/22 20:00 36.7 C 60 18 147/79 H 96 Room Air Laboratory Results Abnormal lab results 10/14/22 10/14/22 10/14/22 Range/Units 08:02 08:02 10:35 RBC 3.21 L 3.35 L (4.20-5.40) M/uL Hgb 9.5 L 10.0 L (12.0-16.0) g/dl Hct 29.5 L 30.9 L (37.0-47.0) % [place] # (Auto) 1.25 H 1.10 H (0.11-0.59) K/uL Glucose 112 H (70-99(Fasting)) mg/dl Calcium 8.3 L (8.6-10.3) mg/dl Total Protein 5.3 L D (6.0-8.3) gm/dl Albumin 3.2 L (3.4-5.0) gm/dl Globulin 2.1 L (2.5-4.0) gm/dl Resident Activity Tracking Resident Involvement: Resident Care Provided Care Provided: Adult Hospital Medicine
--- NOTE | 2022-10-14 07:31 | Surgery Progress Note ---
Date of Service October 14, 2022 Assessment & Plan (1) Inguinal hernia: Plan: POD#1 robot bilateral inguinal hernia repair and lysis of adhesions Vitals are stable Expected soreness post op, pain meds are ordered as needed Incisions are c/d/i. she is tolerating a diet, no nausea/vomiting Continue OOB as tolerates May be discharged to home from surgical standpoint when cleared by medicine Dispo instructions reviewed, f/u in clinic with Dr. House in 1-2 weeks Admission and Anticipated Discharge Date Admission Date: October 12, 2022 Supervising Physician Co-Signing Physician Notes Patient seen examined, labs reviewed, agree with above. POD #1 laparoscopic extensive lysis of adhesions and robotic bilateral inguinal and femoral hernia repairs for recent incarceration with obstruction. Still pretty sore, tolerating diet. Lower abdominal bloating and discomfort improved. Afebrile with stable vitals, abdomen soft, no ecchymosis, incisions without infection. H&H slightly down from admission, repeat stable. Patient feels she is still too sore to go home today, likely discharge tomorrow. Dr. Fox covering over the weekend. Wound care instructions, activity restrictions, and return precautions given, follow-up in general surgery clinic in 2 weeks, call with questions or concerns Subjective Patient reports feeling sore this AM. Has not taken much pain meds. Tolerating small amounts of a diet, no nausea/vomiting. Has been out of bed some. Physical Exam Physical Exam: awake/alert, no distress Respiratory: normal respiratory effort Gastrointestinal (Abdomen): Inspection/Auscultation: + abdominal surgical incision (c/d/i); abdomen not distended Percussion/Palpation: + abdomen tender (expected ansh incisional discomfort ) and abdomen soft Results & Data Vital Signs (Past 12 Hours) Vital Signs Temp Pulse Resp BP Pulse Ox O2 Del Method 10/14/22 04:00 36.6 C 62 18 145/82 H 96 Room Air 10/13/22 22:33 36.7 C 60 18 113/65 96 Room Air 10/13/22 20:00 36.7 C 60 18 147/79 H 96 Room Air PG Care Time/CCT Total # of Minutes Spent Total Time Spent with Patient: Total time spent is greater than 50% in coordination of care (as documented) at patient's floor/unit and/or counseling patient: Coding Level of Care Code 48748 Post Operative Follow-Up Diagnoses Inguinal hernia K40.30 Laterality: unilateral Obstruction and gangrene presence: with obstruction but without gangrene Recurrence: not specified as recurrent (1) Inguinal hernia Laterality: unilateral Obstruction and gangrene presence: with obstruction but without gangrene Recurrence: not specified as recurrent Qualified Code(s): K40.30 - Unilateral inguinal hernia, with obstruction, without gangrene, not specified as recurrent
[2022-10-14] MEDS: MoRPHine SULFATE 2 MG/ML CARP IV PRN (08:22)
[2022-10-14 08:38] LABS: Basophils # (auto) 0.03 K/uL (0-0.2); Basophils % (auto) 0.3 %; Eosinophils # (auto) 0.03 K/uL (0-0.50); Eosinophils % (auto) 0.3 %; Hematocrit (blood only) 29.5 % (37.0-47.0); Hemoglobin 9.5 g/dl (12.0-16.0); Immature Granulocytes # (auto) 0.02 K/uL (0.01-0.20); Immature Granulocytes % (auto) 0.2 %; Lymphocytes # (auto) 1.94 K/uL (1.2-3.4); Lymphocytes % (auto) 21.5 %; Mean Corpuscular Hemoglobin 29.6 pg (25.0-34.0); Mean Corpuscular Hgb Conc 32.2 g/dL (32.0-36.0); Mean Corpuscular Volume 91.9 fL (80.0-100.0); Mean Platelet Volume 10.5 fL (9.4-12.4); Monocytes # (auto) 1.25 K/uL (0.11-0.59); Monocytes % (auto) 13.9 %; Neutrophils # (auto) 5.75 K/uL (1.40-6.50); Neutrophils % (auto) 63.8 %; Platelet Count 221 K/uL (130-400); RDW Coefficient of Variation 13.2 % (11.5-14.5); Red Blood Count 3.21 M/uL (4.20-5.40); White Blood Count 9.02 K/ul (4.8-10.8)
[2022-10-14 08:56] LABS: Albumin Globulin Ratio 1.5 (0.9-2); Albumin Level 3.2 gm/dl (3.4-5.0); BUN Creatinine Ratio 19.8 (10-20); Bilirubin,Total 0.7 mg/dl (0.2-1.0); Calcium 8.3 mg/dl (8.6-10.3); Creatinine Clr Calc Pharmacy 66.2 ml/min; Est GFR (African American) 80.1 ml/min; Est GFR (Non-African American) 69.1 ml/min; Globulin 2.1 gm/dl (2.5-4.0); Magnesium 1.9 mg/dl (1.7-2.4); Potassium 4.3 mmol/L (3.5-5.1); Total Protein 5.3 gm/dl (6.0-8.3)
[2022-10-14 11:01] LABS: Basophils # (auto) 0.04 K/uL (0-0.2); Basophils % (auto) 0.4 %; Eosinophils # (auto) 0.05 K/uL (0-0.50); Eosinophils % (auto) 0.5 %; Hematocrit (blood only) 30.9 % (37.0-47.0); Immature Granulocytes # (auto) 0.03 K/uL (0.01-0.20); Immature Granulocytes % (auto) 0.3 %; Lymphocytes # (auto) 1.65 K/uL (1.2-3.4); Lymphocytes % (auto) 17.9 %; Mean Corpuscular Hemoglobin 29.9 pg (25.0-34.0); Mean Corpuscular Hgb Conc 32.4 g/dL (32.0-36.0); Mean Corpuscular Volume 92.2 fL (80.0-100.0); Mean Platelet Volume 10.5 fL (9.4-12.4); Monocytes % (auto) 11.9 %; Neutrophils # (auto) 6.37 K/uL (1.40-6.50); Platelet Count 227 K/uL (130-400); RDW Coefficient of Variation 13.1 % (11.5-14.5); RDW Standard Deviation 44.3 fL (36.4-46.3); Red Blood Count 3.35 M/uL (4.20-5.40); White Blood Count 9.24 K/ul (4.8-10.8)
[2022-10-14] MEDS: cefTRIAXone SODIUM 2,000 MG in DEXTROSE 5% 50 ML IV SCH (20:36)
[2022-10-14] MEDS: ATORVASTATIN 40 MG TAB PO SCH (20:37)
[2022-10-14] MEDS: ACETAMINOPHEN 325 MG TAB PO PRN (21:01)
--- NOTE | 2022-10-15 08:35 | Hospitalist Progress Note ---
Date of Service October 15, 2022 Assessment & Plan (1) Femoral hernia of left side: (2) HLD (hyperlipidemia): (3) Hypertension: (4) Lymphedema: Plan #Left Femoral Hernia Continues to have pain not well controlled on tylenol alone Tolerated repair well. Pain management post op - will assess, morphine/tylenol as needed Zofran as needed nausea Replete lytes as needed #Hypertension Presented with hypertensive urgency, improved with pain management No history of HTN, not taking any anti-hypertensive agents Continue to assess Clonidine 0.1mg po TID as needed BP >180/110 #Hyperlipidemia Chronic, stable Atorvastatin 40mg PO qHS #Lymphedema Restarted lasix 40mg PO BID this AM Admission and Anticipated Discharge Date Admission Date: October 12, 2022 Supervising Physician Co-Signing Physician Notes I personally examined the patient and verified all becker points of history and exam, discussed case, and agree with decision making and plan documented by Dr. Dyer. Patient continues to have some lower abdominal discomfort and area of surgery, she is POD 2, incisions are C/D/I. Recommend patient be evaluated by physical therapy prior to probable discharge tomorrow if she continues to clinically improve. Subjective 77 yo female with PMHx HTN, HLD, lymphedema admitted with increasing abdominal pain. Found to have incarcerated left femoral hernia containing bowel resulting in SBO. No evidence of strangulation. Reduced bedside by general surgery. Resting in bed this morning in NAD. Continues to have 7/10 pain not well controlled by Tylenol alone. Again advised the patient that she has PRN morphine for higher level pain. She only received one dose yesterday and has not been requesting it. Tolerating diet. She is cleared by surgery for discharge but does not feel she is ready to go home. Review of Systems Review of Systems: Reviewed, see HPI Physical Exam Physical Exam: General: patient resting comfortably, NAD, non-toxic in appearance, AA&O x 4, answers questions appropriately and follows commands. Skin: warm, dry, intact, no rashes or lesions HEENT: NC/AT, PERRL, EOMI, anicteric sclera, conjunctiva without injection, external ear normal to inspection and nontender, nares patent, moist mucus membranes, dentition intact, no oropharyngeal lesions, neck supple, trachea midline, no LAD, no thyromegaly, no JVD Heart: +S1/S2, regular, no m/r/g Lungs: equal air entry bilaterally, no rales/rhonchi/wheezes Abd: +BS, soft, ND, no masses/organomegaly/ascites Incisions C/D/I Ext: warm, 2+ pulses in UE/LE bilaterally, no clubbing/cyanosis or edema Neuro: nonfocal, patient AA&O x 4, speech intact, no facial droop, moving all extremities on command with equal strength 5/5 Results & Data Results & Data Vital Signs (Past 12 Hours) Vital Signs Temp Pulse Resp BP Pulse Ox O2 Del Method 10/14/22 21:59 36.9 C 69 18 147/64 H 96 Room Air Laboratory Results Abnormal lab results 10/14/22 10/14/22 10/14/22 Range/Units 08:02 08:02 10:35 RBC 3.21 L 3.35 L (4.20-5.40) M/uL Hgb 9.5 L 10.0 L (12.0-16.0) g/dl Hct 29.5 L 30.9 L (37.0-47.0) % [place] # (Auto) 1.25 H 1.10 H (0.11-0.59) K/uL Glucose 112 H (70-99(Fasting)) mg/dl Calcium 8.3 L (8.6-10.3) mg/dl Total Protein 5.3 L D (6.0-8.3) gm/dl Albumin 3.2 L (3.4-5.0) gm/dl Globulin 2.1 L (2.5-4.0) gm/dl Resident Activity Tracking Resident Involvement: Resident Care Provided Care Provided: Adult Hospital Medicine
[2022-10-15] MEDS: FUROSEMIDE 40 MG TAB PO SCH ×2 (09:29→16:52)
[2022-10-15] MEDS: MoRPHine SULFATE 2 MG/ML CARP IV PRN (09:29)
--- NOTE | 2022-10-15 10:59 | Surgery Progress Note ---
I have seen this patient with the surgical PA this am and I agree with the plan. Date of Service October 15, 2022 Assessment & Plan (1) Inguinal hernia: Plan: POD #2 robot bilateral inguinal hernia repair and lysis of adhesions Vitals are stable. Pain is well-controlled with PRN Tylenol. She is tolerating a regular diet. Incisions are C/D/I with no signs of infection. From a surgical standpoint she is ok for discharge. She would like to wait until after lunch to see how she feels. Will check back on her in early afternoon. Discharge instructions reviewed yesterday with patient and she is aware that she is to follow-up with Dr. House in 1-2 weeks in the clinic. Return precautions reviewed. Patient seen and examined with Dr. Fox. POD#1 robot bilateral inguinal hernia repair and lysis of adhesions Vitals are stable Expected soreness post op, pain meds are ordered as needed Incisions are c/d/i. she is tolerating a diet, no nausea/vomiting Continue OOB as tolerates May be discharged to home from surgical standpoint when cleared by medicine Dispo instructions reviewed, f/u in clinic with Dr. House in 1-2 weeks Admission and Anticipated Discharge Date Admission Date: October 12, 2022 Subjective Patient resting comfortably in bed. She reports that her pain is well-controlled with as needed Tylenol. She reports that her pain is much better than yesterday. She has been tolerating a regular diet without issue. She denies nausea/vomiting. Review of Systems Constitutional: no fever and no chills Respiratory: no cough and no dyspnea Cardiovascular: no chest pain, no chest pain at rest and no dyspnea Physical Exam Physical Exam: awake/alert, no distress Respiratory: normal respiratory effort Gastrointestinal (Abdomen): Inspection/Auscultation: + abdominal surgical incision (c/d/i); abdomen not distended Percussion/Palpation: + abdomen tender (expected nash incisional discomfort ) and abdomen soft Results & Data Vital Signs (Past 12 Hours) Vital Signs Temp Pulse Resp BP Pulse Ox O2 Del Method 10/15/22 10:13 36.9 C 64 18 137/62 95 Room Air PG Care Time/CCT Total # of Minutes Spent Total Time Spent with Patient: Total time spent is greater than 50% in coordination of care (as documented) at patient's floor/unit and/or counseling patient: Coding Level of Care Code 14851 Post Operative Follow-Up Diagnoses Inguinal hernia K40.30 Laterality: unilateral Obstruction and gangrene presence: with obstruction but without gangrene Recurrence: not specified as recurrent (1) Inguinal hernia Laterality: unilateral Obstruction and gangrene presence: with obstruction but without gangrene Recurrence: not specified as recurrent Qualified Code(s): K40.30 - Unilateral inguinal hernia, with obstruction, without gangrene, not specified as recurrent
--- NOTE | 2022-10-15 13:01 | Surgery Progress Note ---
This patient was discussed with the surgical PA, I agree with this plan. Date of Service October 15, 2022 Assessment & Plan (1) Inguinal hernia: Plan: Patient evaluated and I would recommend another night stay in house. Plan is for her to be evaluated by PT later today. POD #2 robot bilateral inguinal hernia repair and lysis of adhesions Vitals are stable. Pain is well-controlled with PRN Tylenol. She is tolerating a regular diet. Incisions are C/D/I with no signs of infection. From a surgical standpoint she is ok for discharge. She would like to wait until after lunch to see how she feels. Will check back on her in early afternoon. Discharge instructions reviewed yesterday with patient and she is aware that she is to follow-up with Dr. House in 1-2 weeks in the clinic. Return precautions reviewed. Patient seen and examined with Dr. Fox. POD#1 robot bilateral inguinal hernia repair and lysis of adhesions Vitals are stable Expected soreness post op, pain meds are ordered as needed Incisions are c/d/i. she is tolerating a diet, no nausea/vomiting Continue OOB as tolerates May be discharged to home from surgical standpoint when cleared by medicine Dispo instructions reviewed, f/u in clinic with Dr. House in 1-2 weeks Admission and Anticipated Discharge Date Admission Date: October 12, 2022 Subjective Patient seen and examined. is at bedside. She tolerated a regular diet for breakfast and lunch. She does feel that she would benefit from another night in hospital. Will be evaluated by PT later today. Results & Data Vital Signs (Past 12 Hours) Vital Signs Temp Pulse Resp BP Pulse Ox O2 Del Method 10/15/22 10:13 36.9 C 64 18 137/62 95 Room Air PG Care Time/CCT Total # of Minutes Spent Total Time Spent with Patient: Total time spent is greater than 50% in coordination of care (as documented) at patient's floor/unit and/or counseling patient: Coding Level of Care Code 66190 Post Operative Follow-Up Diagnoses Inguinal hernia K40.30 Laterality: unilateral Obstruction and gangrene presence: with obstruction but without gangrene Recurrence: not specified as recurrent (1) Inguinal hernia Laterality: unilateral Obstruction and gangrene presence: with obstruction but without gangrene Recurrence: not specified as recurrent Qualified Code(s): K40.30 - Unilateral inguinal hernia, with obstruction, without gangrene, not specified as recurrent
[2022-10-15 16:52] VITALS: TEMP 98.1
[2022-10-15] MEDS: oxyCODONE/ACETAMINOPHEN 5mg/325mg TAB PO PRN (16:54)
[2022-10-15] MEDS ORDERED: COUGH DROP (SUGAR FREE) LOZ 24 LOZ/1 BOX BUCCAL ONE (20:05)
[2022-10-15] MEDS: cefTRIAXone SODIUM 2,000 MG in DEXTROSE 5% 50 ML IV SCH (20:46)
[2022-10-15] MEDS: ATORVASTATIN 40 MG TAB PO SCH (20:46)
[2022-10-16] MEDS: oxyCODONE/ACETAMINOPHEN 5mg/325mg TAB PO PRN (00:20)
[2022-10-16 07:32] VITALS: O2SAT 94
--- NOTE | 2022-10-16 08:05 | Hospitalist Progress Note ---
Date of Service October 16, 2022 Assessment & Plan (1) Femoral hernia of left side: (2) HLD (hyperlipidemia): (3) Hypertension: (4) Lymphedema: Plan #Left Femoral Hernia Continues to have pain not well controlled on tylenol alone Tolerated repair well. Pain management post op - will assess, morphine/tylenol as needed Zofran as needed nausea Replete lytes as needed #Hypertension Presented with hypertensive urgency, improved with pain management No history of HTN, not taking any anti-hypertensive agents Continue to assess Clonidine 0.1mg po TID as needed BP >180/110 #Hyperlipidemia Chronic, stable Atorvastatin 40mg PO qHS #Lymphedema Restarted lasix 40mg PO BID this AM Admission and Anticipated Discharge Date Admission Date: October 12, 2022 Supervising Physician Co-Signing Physician Notes I personally examined the patient and verified all becker points of history and exam, discussed case, and agree with decision making and plan documented by Dr. Dyer. Patient states pain is improving in her lower abdomen around her surgical incisions and that she feels less bloated today. Vital signs are stable, incisions C/D/I, overall physical exam reassuring. Patient is hopeful for discharge. Subjective 77 yo female with PMHx HTN, HLD, lymphedema admitted with increasing abdominal pain. Found to have incarcerated left femoral hernia containing bowel resulting in SBO. No evidence of strangulation. Reduced bedside by general surgery. Resting in bed this morning in NAD. Pain well controlled this morning, patient eager to go home so that she can attend her and her 's previously scheduled doctors appointments tomorrow. Review of Systems Review of Systems: Reviewed, see HPI Physical Exam Physical Exam: General: patient resting comfortably, NAD, non-toxic in appearance, AA&O x 4, answers questions appropriately and follows commands. Skin: warm, dry, intact, no rashes or lesions HEENT: NC/AT, anicteric sclera, conjunctiva without injection, external ear normal to inspection, nares patent, moist mucus membranes, dentition intact, neck supple, trachea midline, no thyromegaly, no JVD Heart: +S1/S2, regular, no m/r/g Lungs: equal air entry bilaterally, no rales/rhonchi/wheezes Abd: +BS, soft, NT/ND, no masses/organomegaly/ascites Incisions C/D/I Ext: warm, no clubbing/cyanosis or edema Neuro: nonfocal, patient AA&O x 4, speech intact, no facial droop, moving all extremities on command. Results & Data Results & Data Vital Signs (Past 12 Hours) Vital Signs Temp Pulse Resp BP Pulse Ox O2 Del Method 10/16/22 07:28 36.7 C 61 18 191/69 H 94 Room Air 10/15/22 20:15 Room Air Resident Activity Tracking Resident Involvement: Resident Care Provided Care Provided: Adult Hospital Medicine
[2022-10-16] MEDS: FUROSEMIDE 40 MG TAB PO SCH (08:29)
--- NOTE | 2022-10-16 11:08 | Surgery Progress Note ---
I have seen and examined this patient with the surgical PA this am. I agree with this plan. Date of Service October 16, 2022 Assessment & Plan (1) Inguinal hernia: Plan: POD #3 robot bilateral inguinal hernia repair and lysis of adhesions Madeline is doing very well today. She reports that she is feeling good and feels ready to go home. Incisions remain C/D/I and well-approximated with no signs of infection. Return precautions reviewed. Patient is ok for discharge to home today. Discharge per primary service. She is aware that she is to follow-up with Dr. House in 1-2 weeks after discharge. Patient seen and examined with Dr. Fox. Patient evaluated and I would recommend another night stay in house. Plan is for her to be evaluated by PT later today. POD #2 robot bilateral inguinal hernia repair and lysis of adhesions Vitals are stable. Pain is well-controlled with PRN Tylenol. She is tolerating a regular diet. Incisions are C/D/I with no signs of infection. From a surgical standpoint she is ok for discharge. She would like to wait until after lunch to see how she feels. Will check back on her in early afternoon. Discharge instructions reviewed yesterday with patient and she is aware that she is to follow-up with Dr. House in 1-2 weeks in the clinic. Return precautions reviewed. Patient seen and examined with Dr. Fox. POD#1 robot bilateral inguinal hernia repair and lysis of adhesions Vitals are stable Expected soreness post op, pain meds are ordered as needed Incisions are c/d/i. she is tolerating a diet, no nausea/vomiting Continue OOB as tolerates May be discharged to home from surgical standpoint when cleared by medicine Dispo instructions reviewed, f/u in clinic with Dr. House in 1-2 weeks Admission and Anticipated Discharge Date Admission Date: October 12, 2022 Subjective Madeline reports that she is feeling much better today and feels that she is ready to go home. She reports that her pain is well-controlled. She denies nausea or vomiting. Review of Systems Constitutional: no fever and no chills Respiratory: no cough and no dyspnea Cardiovascular: no chest pain, no chest pain at rest and no dyspnea Physical Exam Physical Exam: awake/alert, no distress Respiratory: normal respiratory effort Gastrointestinal (Abdomen): Inspection/Auscultation: + abdominal surgical incision (c/d/i); abdomen not distended Percussion/Palpation: + abdomen tender (expected nash incisional discomfort ) and abdomen soft Results & Data Vital Signs (Past 12 Hours) Vital Signs Temp Pulse Resp BP Pulse Ox O2 Del Method 10/16/22 07:28 36.7 C 61 18 191/69 H 94 Room Air PG Care Time/CCT Total # of Minutes Spent Total Time Spent with Patient: Total time spent is greater than 50% in coordination of care (as documented) at patient's floor/unit and/or counseling patient: Coding Level of Care Code 47692 Post Operative Follow-Up Diagnoses Inguinal hernia K40.30 Laterality: unilateral Obstruction and gangrene presence: with obstruction but without gangrene Recurrence: not specified as recurrent (1) Inguinal hernia Laterality: unilateral Obstruction and gangrene presence: with obstruction but without gangrene Recurrence: not specified as recurrent Qualified Code(s): K40.30 - Unilateral inguinal hernia, with obstruction, without gangrene, not specified as recurrent
[2022-10-16 13:33] VITALS: BP 132/66; PULSE 58
--- NOTE | 2022-10-16 17:27 | Discharge Summary ---
Date of Service October 16, 2022 Admission HPI Per Admitting Provider Madeline Galvan is a 77yo female with history of hypertension and lymphedema presenting with abdominal pain. Patient first presented to the ER in June 2022 with similar pain periumbilical and lower abdominal. She was found to have cholelithiasis without evidence of acute cholecystitis as well as mild CBD dilation and enteritis. A femoral hernia was seen on the CT of the abdomen as well with no tenderness in this are a. Patient was evaluated by General Surgery. Her symptoms improved and she was ultimately discharged home. She was to follow up with Surgery to have a cholecystectomy but did not as her pain had resolved. Yesterday patient developed increased abdominal pain - lower abdominal pain, dull and aching. Intermittent, severe 12/11. Patient presented to the ER today because the pain was becoming more constant and severe throughout the day. She has had no nausea or vomiting, no fevers or chills. She had a normal BM this morning 10/12/22. She passed a small amount of flatus this AM. No additional complaints at this time. No urinary complaints. In the ER she is afebrile, hypertensive on arrival at 226/176 ER Course: Morphine Admission Exam (Per Admitting) Constitutional General: patient resting comfortably, NAD, non-toxic in appearance, AA&O x 4 Skin: warm, dry, intact, no rashes or lesions HEENT: NC/AT, PERRL, EOMI, anicteric sclera, conjunctiva without injection, external ear normal to inspection and nontender, nares patent, moist mucus membranes, dentition intact, no oropharyngeal lesions, neck supple, trachea midline, no LAD, no thyromegaly, no JVD Heart: +S1/S2, regular, no m/r/g Lungs: equal air entry bilaterally, no rales/rhonchi/wheezes Abd: +BS, soft, lower abdominal tenderness with palpable femoral hernia - General Surgery at bedside and actively attempting hernia reduction, no masses/organomegaly/ascites Ext: warm, 2+ pulses in UE/LE bilaterally, chronic lymphedema Neuro: nonfocal, patient AA&O x 4, speech intact, no facial droop, moving all extremities on command with equal strength 5/5 Discharge Data Consultations 10/12/22 19:14 ED Decision to Admit Stat 10/12/22 23:53 Consult General Surgery Routine Procedures Performed Operation Date: 10/13/22 09:25 Actual Procedures p Robotic assisted Bilateral Laparoscopic Inguinal Hernia Repair with Mesh and Laparoscopic Lysis of Adhesions(Bilateral) - Michael House DO, FACS Hospital Course (1) Inguinal hernia: (2) HLD (hyperlipidemia): (3) Hypertension: (4) Lymphedema: Plan Madeline Galvan was admitted on 10/12/22 with an incarcerated, but not strangulated, L inguinal hernia. This was reduced manually by surgery and repair was completed on 10/13/22. During the surgical case she was found to have a R inguinal hernia which was repaired. Patient tolerated the procedure well but had significant pain post-op, which was managed with morphine and tylenol. She continued to improve across the course of her stay and was discharged with mild-moderate discomfort on 10/16/22. #Bilateral Femoral Hernia Continues to have pain not well controlled on tylenol alone Tolerated repair well. Pain management post op - will assess, morphine/tylenol as needed Zofran as needed nausea Replete lytes as needed #Hypertension Presented with hypertensive urgency, improved with pain management No history of HTN, not taking any anti-hypertensive agents Continue to assess Clonidine 0.1mg po TID as needed BP >180/110 #Hyperlipidemia Chronic, stable Atorvastatin 40mg PO qHS #Lymphedema Restarted lasix 40mg PO BID this AM Admission and Anticipated Discharge Date Admission Date: October 12, 2022 Supervising Physician Co-Signing Physician Notes I personally examined the patient and verified all becker points of history and exam, discussed case, and agree with decision making and plan documented by Dr. Dyer. Patient has been cleared by surgery and is stable for discharge. Small prescription (#10) of Tylenol with codeine 3 provided. Discussed aftercare and follow-up with surgery, incisions were C/D/I on discharge, reviewed reasons to seek medical attention. Patient has follow-up with her PCP tomorrow. Resident Activity Tracking Resident Involvement: Resident Care Provided Care Provided: [facility]
== END 2022-10-16 14:09 | disposition home or self-care (01) | DRG 336 ==
LOC: ED 16:25 → 3W 19:37 → SUATTDRO 19:37 → 3W 23:02